=== PATIENT | female | born 1960 | race Caucasian/White ===

== ENCOUNTER 2017-01-16 19:12 | Emergency (ER) | payer MEDICAID ==
[~2017-01-16] VITALS: Ht 172.7 cm; Wt 112.0 kg
[~2017-01-16 19:12] MED LIST: ALBU6.7H INH; ASPI81TA11 PO; DILT120C7 PO; FLUO1TAB3 PO; FLUT1SPR20; FURO40TA PO; HYDR-3533 PO; IPRA1POW8; LATA0.002 EACH EYE; LEVO150T7 PO; LORA1TAB12 PO; MAGN500T2 PO; METF850T PO; MIRT30TA PO; MONT10TA4 PO; OMEP40CA2 PO; POTA10CA PO; SYMB80AE INH; TIMO0.5S30 EACH EYE
[2017-01-16 19:15] VITALS: BP 145/80; PULSE 74; RESP 15; TEMP 97.9; O2SAT 95
[2017-01-16 23:32] VITALS: BP 155/81; PULSE 65; RESP 22; O2SAT 91
[2017-01-17] MEDS ORDERED: SODIUM CHLORIDE 0.9% FLUSH 5 ML FLUSH IVF PRN
[2017-01-17 00:27] LABS: AUTOMATED NEUTROPHIL # 7.8 TH/MM3 (1.8-7.7); BASOPHIL # 0.1 TH/MM3 (0-0.2); BASOPHIL % 0.9 % (0.0-2.0); EOSINOPHIL # 0.1 TH/MM3 (0-0.4); EOSINOPHIL % 1.1 % (0.0-4.0); HEMATOCRIT 40.5 % (35.0-46.0); HEMO FLAGS DIFF FINAL; LYMPH % 10.9 % (9.0-44.0); MEAN CELL VOLUME 90.5 FL (80.0-100.0); MEAN CORPUSCULAR HEMOGLOBIN 31.3 PG (27.0-34.0); MEAN CORPUSCULAR HGB CONC 34.6 % (32.0-36.0); MONO % 5.3 % (0.0-8.0); NEUT % 81.8 % (16.0-70.0); PLATELET COUNT 275 TH/MM3 (150-450); RED BLOOD COUNT 4.47 MIL/MM3 (4.00-5.30); RED CELL DISTRIBUTION WIDTH 14.5 % (11.6-17.2); WHITE BLOOD COUNT 9.6 TH/MM3 (4.0-11.0)
[2017-01-17 00:48] LABS: ALT (GPT) 17 U/L (10-53); ANION GAP 4 MEQ/L (5-15); AST (GOT) 13 U/L (15-37); BICARBONATE 33.7 MEQ/L (21.0-32.0); BLOOD UREA NITROGEN 8 MG/DL (7-18); CHLORIDE 100 MEQ/L (98-107); GLOMERULAR FILTRATION RATE 87 ML/MIN (>89); MAGNESIUM 2.3 MG/DL (1.5-2.5); POTASSIUM 4.2 MEQ/L (3.5-5.1); SODIUM (NA) 138 MEQ/L (136-145)
[2017-01-17 00:51] LABS: ALKALINE PHOSPHATASE 94 U/L (45-117); CREATINE KINASE 47 U/L (26-192); TOTAL BILIRUBIN ADULT 0.3 MG/DL (0.2-1.0)
--- NOTE | 2017-01-17 01:02 | RADRPT ---
EXAM DATE/TIME: 01/17/2017 00:02 [facility] COMPARISON: CHEST SINGLE AP, March 31, 2016, 17:59. INDICATIONS : Chest pain. MEDICAL HISTORY : None. SURGICAL HISTORY : None. ENCOUNTER: Initial ACUITY: 2 days PAIN SCORE: 7/10 LOCATION: Bilateral chest FINDINGS: Single AP view of the chest. Mild cardiac silhouette enlargement unchanged. Mild atelectasis or scarr ing at the lung bases unchanged. Cardiomediastinal silhouette within normal limits. No evidence of pl eural effusion or pneumothorax. CONCLUSION: Mild by basilar atelectasis or scarring. No significant interval change. Noah Pitt MD on January 17, 2017 at 1:00 Board Certified Radiologist. This report was verified electronically.
[2017-01-17 01:36] LABS: APTT (PATIENT) 26.1 SEC (24.3-30.1); INTERNATIONAL NORMALIZED RATIO 0.9 RATIO; PROTHROMBIN TIME - PATIENT 10.2 SEC (9.8-11.6)
[2017-01-17] MEDS ORDERED: IOHEXOL 350 MG/ML 10 ML VIAL (for RAD DIAG) IV ONE (02:04)
--- NOTE | 2017-01-17 02:32 | RADRPT ---
EXAM DATE/TIME: 01/17/2017 01:46 [facility] COMPARISON: CT THORAX W/O CONTRAST, August 13, 2016, 14:16. CT PULMONARY ANGIOGRAM, March 04, 2015, 19:41. INDICATIONS : Chest pain with shortness of breath. IV CONTRAST: 75 cc Omnipaque 350 (iohexol) IV RADIATION DOSE: 23.38 CTDIvol (mGy) MEDICAL HISTORY : Cardiovascular disease. Hypertension. Diabetes mellitus type 2.COPD GERD Renal stones SURGICAL HISTORY : Cholecystectomy. Lithoptripsy ENCOUNTER: Initial ACUITY: 2 days PAIN SCALE: 7/10 LOCATION: Bilateral chest TECHNIQUE: Volumetric scanning of the chest was performed using a pulmonary embolism protocol MIP images were re constructed. Using automated exposure control and adjustment of the mA and/or kV according to patien t size, radiation dose was kept as low as reasonably achievable to obtain optimal diagnostic quality images. FINDINGS: PULMONARY ARTERIES: No filling defects are seen in the pulmonary arteries through the segmental level. LUNGS: Mosaic attenuation pattern of the lungs is again seen bilaterally and unchanged. Scarring is noted in the right middle lobe and lingula bilaterally. Reticular opacity and mild honeycombing is seen in th e right lower lobe posteriorly along with mild bilateral lower lobe bronchiectasis. 2.5 x 1 cm elonga kartik area of confluent opacity at the inferior aspect of the left lower lobe favors atelectasis or mil d consolidation. This is not seen on the prior study. PLEURAE: There is no pleural thickening or pleural effusion. MEDIASTINUM: Aorta normal liver. No enlarged lymph nodes. MUSCULOSKELETAL: Within normal limits for patient age. MISCELLANEOUS: The visualized upper abdominal organs demonstrate no acute abnormality. CONCLUSION: 1. No evidence of pulmonary embolus. 2. Evidence of chronic interstitial lung disease with mild honeycombing at the right lung base. Findi ngs upper breast when compared thousand 15. Lung findings are very similar to prior study of August 2016. There is a masslike opacity in the left lower lobe was shaped and favors atelectasis. Recommend 3 month followup noncontrast chest CT. Noah Pitt MD on January 17, 2017 at 2:24 Board Certified Radiologist. This report was verified electronically.
--- NOTE | 2017-01-17 02:32 | PD ---
HPI Chief Complaint: Respiratory Symptoms Time Seen by Provider: 23:48 Travel History International Travel<30 days: No Contact w/Intl Traveler<30days: No Traveled to known affect area: No History of Present Illness HPI The patient is 57 years old and arrives. She saw Dr. Nicholas of pulmonology today because she has been having left-sided chest pain for about 1 month. She took Levaquin and prednisone which did not help. She's had chills. She's had no fever. She reports an occasional cough. There is no exertional component to the chest pain. It's constant. There is no nausea or vomiting. She has no history of PE or DVT. She denies smoking. She was advised to go to [facility] to have a CT pulmonary angiogram to rule out PE performed. She was advised to come to the ED. PFSH Past Medical History Hx Anticoagulant Therapy: Yes (ASA) Arthritis: No Asthma: Yes Autoimmune Disease: No Anxiety: No Depression: No Heart Rhythm Problems: No Cancer: No Cardiovascular Problems: Yes (HTN) High Cholesterol: Yes Chest Pain: No Congestive Heart Failure: Yes COPD: Yes Cerebrovascular Accident: No Diabetes: Yes Patient Takes Glucophage: No Diminished Hearing: No Endocrine: Yes Gastrointestinal Disorders: Yes GERD: Yes Genitourinary: Yes Headaches: No Hepatitis: No Hiatal Hernia: No Hypertension: Yes (HTN ) Immune Disorder: No Kidney Stones: Yes (S/P LITHOTRIPSY ) Musculoskeletal: No Neurologic: No Psychiatric: Yes (BIPOLAR / SCHIZOPHRENIA/ ATTEMPTED SUICIDE 1 TIME IN PAST ) Reproductive: No Respiratory: Yes (COPD) Immunizations Current: Yes Migraines: No Myocardial Infarction: No Seizures: No Thyroid Disease: Yes (HYPOTHYROID ) Ulcer: Yes (ACID REFLEX) Influenza Vaccination: Yes PNEUMOCCOCAL Vaccine (Year): 2008 Menopausal: Yes Past Surgical History Abdominal Surgery: No Cardiac Surgery: No Cholecystectomy: Yes Ear Surgery: No Endocrine Surgery: No Genitourinary Surgery: Yes (LITHOTRIPSY ) Gynecologic Surgery: No Oral Surgery: Yes (REMOVAL OF TEETH/ DENTURES) Pacemaker: No Thoracic Surgery: Yes (RIGHT LUNG BIOPSY ) Other Surgery: Yes (GALL BLADDER, LITHOTRIPSY, GLAUCOMA SX, I&D RIGHT KNEE ) Social History Alcohol Use: Yes (RARELY) Tobacco Use: No (QUIT 1995) Substance Use: No Allergies-Medications (Allergen,Severity, Reaction): Coded Allergies: Latex (Verified Allergy, Severe, RASH, 01/16/17) Sulfa (Verified Allergy, Severe, UNKNOWN, 01/16/17) Reported Meds & Prescriptions Reported Meds & Active Scripts Active Magnesium Oxide 500 Mg Tab 500 Mg PO DAILY 30 Days Lortab (Hydrocodone-Acetaminophen) 5-325 Mg Tab 1-2 Tab PO Q6H PRN Potassium Chloride ER (Potassium Chloride) 10 Meq Cap 10 Meq PO DAILY Reported Proventil Hfa 6.7 GM Inh (Albuterol Sulfate) 90 Mcg/Act Aer 2 Puff INH Q4-6H PRN Ipratropium Essie 1 Pow Pow 0.02 % .ROUTE Timolol Opth Drops 0.5 % Soln 1 Drop EACH EYE BID Latanoprost Opth Drops (Latanoprost) 0.005% Drops 1 Drop EACH EYE HS Refrigerate until opened. Eq Allergy Relief (Fluticasone Propionate (Nasal)) 50 Mcg/Act Spr Furosemide 40 Mg Tab 40 Mg PO BID Omeprazole 40 Mg Cap 40 Mg PO DAILY Fluoxetine (Fluoxetine HCl) 20 Mg Tab 20 Mg PO DAILY Montelukast (Montelukast Sodium) 10 Mg Tab 10 Mg PO DAILY Levothyroxine (Levothyroxine Sodium) 150 Mcg Tab 150 Mcg PO DAILY Mirtazapine 30 Mg Tab 30 Mg PO HS Lorazepam 1 Mg Tab 1 Mg PO HS PRN Aspirin EC (Aspirin) 81 Mg Tabdr 81 Mg PO DAILY Diltiazem ER 24 HR (Diltiazem HCl) 120 Mg Caper 120 Mg PO DAILY Review of Systems Except as stated in HPI: all other systems reviewed are Neg Physical Exam Narrative GENERAL: 57 yo F, WNWD, no acute distress SKIN: Warm and dry. HEAD: Atraumatic. Normocephalic. EYES: Pupils equal and round. No scleral icterus. No injection or drainage. ENT: No nasal bleeding or discharge. Mucous membranes pink and moist. NECK: Trachea midline. No JVD. CARDIOVASCULAR: Regular rate and rhythm. RESPIRATORY: Occasional wheeze R lung. No tachypnea or dyspnea. GASTROINTESTINAL: Abdomen soft, non-tender, nondistended. Hepatic and splenic margins not palpable. MUSCULOSKELETAL: Extremities without clubbing, cyanosis, or edema. No obvious deformities. NEUROLOGICAL: Awake and alert. No obvious cranial nerve deficits. Motor grossly within normal limits. Five out of 5 muscle strength in the arms and legs. Normal speech. PSYCHIATRIC: Appropriate mood and affect; insight and judgment normal. Data Data Last Documented VS Vital Signs Date Time Temp Pulse Resp B/P Pulse Ox O2 Delivery O2 Flow Rate FiO2 01/17/17 00:15 94 Nasal Cannula 2 01/16/17 23:32 65 22 155/81 01/16/17 19:15 97.9 VS reviewed Orders Electrocardiogram (01/16/17 23:48) B-Type Natriuretic Peptide (01/16/17 23:48) Ckmb (Isoenzyme) Profile (01/16/17 23:48) Complete Blood Count With Diff (01/16/17 23:48) Comprehensive Metabolic Panel (01/16/17 23:48) Magnesium (Mg) (01/16/17 23:48) Prothrombin Time / Inr (Pt) (01/16/17 23:48) Act Partial Throm Time (Ptt) (01/16/17 23:48) Troponin I (01/16/17 23:48) Chest, Single Ap (01/16/17 23:48) Ecg Monitoring (01/16/17 23:48) Bilateral Bp Monitoring (01/16/17 23:48) Iv Access Insert/Monitor (01/16/17 23:48) Oximetry (01/16/17 23:48) Oxygen Administration (01/16/17 23:48) Sodium Chloride 0.9% Flush (Ns Flush) (01/17/17 00:00) Ct Pulmonary Angiogram (01/17/17 ) Iohexol 350 Inj (Omnipaque 350 Inj) (01/17/17 02:04) Labs Laboratory Tests Test 01/17/17 01/17/17 00:10 01:15 White Blood Count 9.6 TH/MM3 Red Blood Count 4.47 MIL/MM3 Hemoglobin 14.0 GM/DL Hematocrit 40.5 % Mean Corpuscular Volume 90.5 FL Mean Corpuscular Hemoglobin 31.3 PG Mean Corpuscular Hemoglobin 34.6 % Concent Red Cell Distribution Width 14.5 % Platelet Count 275 TH/MM3 Mean Platelet Volume 8.6 FL Neutrophils (%) (Auto) 81.8 % Lymphocytes (%) (Auto) 10.9 % Monocytes (%) (Auto) 5.3 % Eosinophils (%) (Auto) 1.1 % Basophils (%) (Auto) 0.9 % Neutrophils # (Auto) 7.8 TH/MM3 Lymphocytes # (Auto) 1.0 TH/MM3 Monocytes # (Auto) 0.5 TH/MM3 Eosinophils # (Auto) 0.1 TH/MM3 Basophils # (Auto) 0.1 TH/MM3 CBC Comment DIFF FINAL Differential Comment Sodium Level 138 MEQ/L Potassium Level 4.2 MEQ/L Chloride Level 100 MEQ/L Carbon Dioxide Level 33.7 MEQ/L Anion Gap 4 MEQ/L Blood Urea Nitrogen 8 MG/DL Creatinine 0.69 MG/DL Estimat Glomerular Filtration 87 ML/MIN Rate Random Glucose 117 MG/DL Calcium Level 9.2 MG/DL Magnesium Level 2.3 MG/DL Total Bilirubin 0.3 MG/DL Aspartate Amino Transf 13 U/L (AST/SGOT) Alanine Aminotransferase 17 U/L (ALT/SGPT) Alkaline Phosphatase 94 U/L Total Creatine Kinase 47 U/L Troponin I LESS THAN 0.02 NG/ML B-Type Natriuretic Peptide 44 PG/ML Total Protein 7.6 GM/DL Albumin 3.7 GM/DL Prothrombin Time 10.2 SEC Prothromb Time International 0.9 RATIO Ratio Activated Partial 26.1 SEC Thromboplast Time MDM Medical Decision Making Medical Screen Exam Complete: Yes Emergency Medical Condition: Yes Medical Record Reviewed: Yes Differential Diagnosis NSTEMI, unstable angina, coronary vasospasm, PE, PTX, aortic dissection, pericarditis, myocarditis, endocarditis, PNA, esophageal disease, aneurysm, musculoskeletal etiologies, anxiety, cocaine/sympathomimetic abuse Narrative Course CBC & BMP Diagram 01/17/17 00:10 Tn < 0.02 BNP 44 LFTs normal EKG: sinus, rate 65, normal axis/intervals Last 24 hours Impressions Chest X-Ray 01/16/17 0010 Signed Impressions: Service Date/Time: January 00:02 - CONCLUSION: Mild by basilar atelectasis or scarring. No significant interval change. Noah Pitt MD CTPA: Chronic intersitial lung disease with mild honeycombing at the right lung base. Masslike opactiy in LLL favors atelectasis. Recommend 3 month follow up noncontrast chest CT. Patient verbalized understanding of plan. Diagnosis Primary Impression: Chest pain Qualified Code: R07.9 - Chest pain, unspecified type Additional Impressions: Atelectasis Chronic interstitial lung disease Referrals: Belkis Wu MD 2 days Follow up noncontrast CT ches in 3 months Additional Instructions: You have a choice when it comes to health care, and we are glad that you chose [facility]. Hopefully, we have met your expectations on today's visit. You are welcome to return to [facility] at any time, as we are committed to meeting the health care needs of our community. Med/Other Pt SpecificInfo: No Change to Meds Disposition: 01 DISCHARGE HOME Condition: Gregg Esqueda MD Jan 17, 2017 02:32
--- NOTE | 2017-01-17 13:51 | EKG ---
Date Performed: 01/17/2017 Time Performed: 00:23:21 PTAGE: 57 years EKG: Sinus rhythm LOW QRS VOLTAGE IN PRECORDIAL LEADS POSSIBLE ANTERIOR MYOCARDIAL INFARCTION MODERATE T-WAVE ABNORMAL ITY, CONSIDER LATERAL ISCHEMIA ABNORMAL ECG PREVIOUS TRACING : 03/31/2016 18.07 DOCTOR: Jerrod Matias Interpretating Date/Time 01/17/2017 13:48:46
[2017-04-10] MEDS ORDERED: FLUT50SP EACH NARE (11:06)
== END 2017-01-17 02:55 | disposition home or self-care (01) ==
LOC: NEPE 19:12
DX: J98.11 Atelectasis (principal); J45.909 Unspecified asthma, uncomplicated; I10 Essential (primary) hypertension; E78.00 Pure hypercholesterolemia, unspecified; I50.9 Heart failure, unspecified; J44.9 Chronic obstructive pulmonary disease, unspecified; E11.9 Type 2 diabetes mellitus without complications; E03.9 Hypothyroidism, unspecified
CPT/HCPCS: 71010; 71275; 80053; 82550; 83735; 83880; 84484; 85025; 85610; 85730; 93005; 99285; Q9967

== ENCOUNTER 2017-04-13 17:50 | Inpatient (IN) | payer MEDICAID ==
[~2017-04-13] VITALS: Ht 172.7 cm; Wt 112.7 kg
[~2017-04-13 17:50] MED LIST changes: -FLUT1SPR20; +FLUT50SP EACH NARE; -IPRA1POW8; -METF850T PO; -SYMB80AE INH
[2017-04-13 17:54] VITALS: BP 163/73; PULSE 80; RESP 32; TEMP 97.1; O2SAT 85
[2017-04-13] MEDS ORDERED: methylPREDNISolone SOD SUCC 125 MG/2 ML VIAL IVP ONE (18:00)
--- NOTE | 2017-04-13 18:01 | PD ---
HPI Chief Complaint: Respiratory Distress Time Seen by Provider: 18:00 Travel History International Travel<30 days: No Contact w/Intl Traveler<30days: No Traveled to known affect area: No History of Present Illness HPI 57-year-old female with history of COPD presents to the ED for evaluation of 2 day history of shortness of breath. Patient is on 3 L O2 nasal cannula at home. She endorses chronic nonproductive cough. She denies fever or chills, chest pain, palpitations. Followed by Dr. Nicholas. [facility] Past Medical History Hx Anticoagulant Therapy: Yes (ASA) Arthritis: No Asthma: Yes Autoimmune Disease: No Anxiety: No Depression: No Heart Rhythm Problems: No Cancer: No Cardiovascular Problems: Yes (HTN) High Cholesterol: Yes Chest Pain: No Congestive Heart Failure: Yes COPD: Yes Cerebrovascular Accident: No Diabetes: Yes Diminished Hearing: No Endocrine: Yes Gastrointestinal Disorders: Yes GERD: Yes Genitourinary: Yes Headaches: No Hepatitis: No Hiatal Hernia: No Hypertension: Yes (HTN ) Immune Disorder: No Kidney Stones: Yes (S/P LITHOTRIPSY ) Musculoskeletal: No Neurologic: No Psychiatric: Yes (BIPOLAR / SCHIZOPHRENIA/ ATTEMPTED SUICIDE 1 TIME IN PAST ) Reproductive: No Respiratory: Yes (COPD) Immunizations Current: Yes Migraines: No Myocardial Infarction: No Seizures: No Thyroid Disease: Yes (HYPOTHYROID ) Ulcer: Yes (ACID REFLEX) PNEUMOCCOCAL Vaccine (Year): 2008 ?: Not Menopausal: Yes Past Surgical History Abdominal Surgery: No Cardiac Surgery: No Cholecystectomy: Yes Ear Surgery: No Endocrine Surgery: No Genitourinary Surgery: Yes (LITHOTRIPSY ) Gynecologic Surgery: No Oral Surgery: Yes (REMOVAL OF TEETH/ DENTURES) Pacemaker: No Thoracic Surgery: Yes (RIGHT LUNG BIOPSY ) Other Surgery: Yes (GALL BLADDER, LITHOTRIPSY, GLAUCOMA SX, I&D RIGHT KNEE ) Social History Alcohol Use: Yes (RARELY) Tobacco Use: No (QUIT 1995) Substance Use: No Allergies-Medications (Allergen,Severity, Reaction): Coded Allergies: Latex (Verified Allergy, Severe, RASH, 04/13/17) Sulfa (Verified Allergy, Severe, UNKNOWN, 04/13/17) Reported Meds & Prescriptions Reported Meds & Active Scripts Active Magnesium Oxide 500 Mg Tab 500 Mg PO DAILY 30 Days Potassium Chloride ER (Potassium Chloride) 10 Meq Cap 10 Meq PO DAILY Reported Proventil Hfa 6.7 GM Inh (Albuterol Sulfate) 90 Mcg/Act Aer 2 Puff INH Q4-6H PRN Timolol Opth Drops 0.5 % Soln 1 Drop EACH EYE BID Latanoprost Opth Drops (Latanoprost) 0.005% Drops 1 Drop EACH EYE HS Refrigerate until opened. Furosemide 40 Mg Tab 40 Mg PO BID Omeprazole 40 Mg Cap 40 Mg PO DAILY Fluoxetine (Fluoxetine HCl) 20 Mg Tab 20 Mg PO DAILY Montelukast (Montelukast Sodium) 10 Mg Tab 10 Mg PO DAILY Levothyroxine (Levothyroxine Sodium) 150 Mcg Tab 150 Mcg PO DAILY Mirtazapine 30 Mg Tab 60 Mg PO HS Lorazepam 1 Mg Tab 2 Mg PO Q12HR PRN Aspirin EC (Aspirin) 81 Mg Tabdr 81 Mg PO DAILY Diltiazem ER 24 HR (Diltiazem HCl) 120 Mg Caper 120 Mg PO DAILY Review of Systems Except as stated in HPI: all other systems reviewed are Neg Physical Exam Narrative GENERAL: Well-nourished, well-developed pale white female in NAD. On 3L NC. SKIN: Focused skin assessment warm/dry. Perioral cyanosis. HEAD: Normocephalic. EYES: No scleral icterus. No injection or drainage. NECK: Supple, trachea midline. No JVD or lymphadenopathy. CARDIOVASCULAR: Regular rate and rhythm without murmurs, gallops, or rubs. 2+ DP and radial pulses bilaterally. RESPIRATORY: Breath sounds diminished, wheezing throughout bilaterally. No accessory muscle use. GASTROINTESTINAL: Abdomen soft, non-tender, nondistended. No suprapubic TTP. Active bowel sounds MUSCULOSKELETAL: No cyanosis, or edema. Trace edema to the mid-cheema bilaterally. BACK: Nontender without obvious deformity. No CVA tenderness. Data Data Last Documented VS Vital Signs Date Time Temp Pulse Resp B/P Pulse Ox O2 Delivery O2 Flow Rate FiO2 04/13/17 19:14 67 21 142/60 93 Nasal Cannula 6 04/13/17 17:54 97.1 Orders Complete Blood Count With Diff (04/13/17 17:51) Comprehensive Metabolic Panel (04/13/17 17:51) Act Partial Throm Time (Ptt) (04/13/17 17:51) Prothrombin Time / Inr (Pt) (04/13/17 17:51) Ckmb (Isoenzyme) Profile (04/13/17 17:51) Troponin I (04/13/17 17:51) Urinalysis - C+S If Indicated (04/13/17 17:51) Iv Access Insert/Monitor (04/13/17 17:51) Electrocardiogram (04/13/17 17:51) Ecg Monitoring (04/13/17 17:51) Oximetry (04/13/17 17:51) Oxygen Administration (04/13/17 17:51) Methylprednisolone So Succ Inj (Solumedr (04/13/17 18:00) Albuterol-Ipratropium Neb (Duoneb Neb) (04/13/17 18:00) Blood Culture (04/13/17 17:57) Lactic Acid (04/13/17 17:57) Arterial Blood Gas (Abg) (04/13/17 ) D-Dimer (04/13/17 18:07) B-Type Natriuretic Peptide (04/13/17 18:33) Ct Pulmonary Angiogram (04/13/17 19:47) Urine Culture (04/13/17 19:52) Iohexol 350 Inj (Omnipaque 350 Inj) (04/13/17 22:03) Levofloxacin 750 Mg Premix Inj (Levaquin (04/13/17 23:00) Chest, Single Ap (04/13/17 ) Labs Laboratory Tests Test 04/13/17 04/13/17 04/13/17 04/13/17 17:58 18:04 18:15 19:52 White Blood Count 9.7 TH/MM3 Red Blood Count 4.71 MIL/MM3 Hemoglobin 14.2 GM/DL Hematocrit 43.6 % Mean Corpuscular Volume 92.7 FL Mean Corpuscular Hemoglobin 30.3 PG Mean Corpuscular Hemoglobin 32.6 % Concent Red Cell Distribution Width 13.5 % Platelet Count 315 TH/MM3 Mean Platelet Volume 8.7 FL Neutrophils (%) (Auto) 75.5 % Lymphocytes (%) (Auto) 13.9 % Monocytes (%) (Auto) 7.1 % Eosinophils (%) (Auto) 2.4 % Basophils (%) (Auto) 1.1 % Neutrophils # (Auto) 7.3 TH/MM3 Lymphocytes # (Auto) 1.3 TH/MM3 Monocytes # (Auto) 0.7 TH/MM3 Eosinophils # (Auto) 0.2 TH/MM3 Basophils # (Auto) 0.1 TH/MM3 CBC Comment DIFF FINAL Differential Comment Sodium Level 139 MEQ/L Potassium Level 3.6 MEQ/L Chloride Level 98 MEQ/L Carbon Dioxide Level 32.1 MEQ/L Anion Gap 9 MEQ/L Blood Urea Nitrogen 8 MG/DL Creatinine 0.59 MG/DL Estimat Glomerular Filtration 104 ML/MIN Rate Random Glucose 113 MG/DL Calcium Level 9.3 MG/DL Total Bilirubin 0.5 MG/DL Aspartate Amino Transf 14 U/L (AST/SGOT) Alanine Aminotransferase 17 U/L (ALT/SGPT) Alkaline Phosphatase 113 U/L Total Creatine Kinase 24 U/L Troponin I LESS THAN 0.02 NG/ML B-Type Natriuretic Peptide 46 PG/ML Total Protein 7.7 GM/DL Albumin 3.2 GM/DL Prothrombin Time 10.4 SEC Prothromb Time International 0.9 RATIO Ratio Activated Partial 26.6 SEC Thromboplast Time D-Dimer Quantitative (PE/DVT) 0.94 MG/L FEU Blood Gas Puncture Site LT RADIAL Blood Gas Patient Temperature 98.6 Blood Gas HCO3 35 mmol/L Blood Gas Base Excess 9.6 mmol/L Blood Gas Oxygen Saturation 97 % Arterial Blood pH 7.41 Arterial Blood Partial 56 mmHg Pressure CO2 Arterial Blood Partial 156 mmHG Pressure O2 Arterial Blood Oxygen Content 18.8 Vol % Arterial Blood 1.8 % Carboxyhemoglobin Arterial Blood Methemoglobin 0.7 % Blood Gas Hemoglobin 13.7 G/DL Oxygen Delivery Device NASAL CANNULA Blood Gas Liter Flow 2.5 L/M Urine Color YELLOW Urine Turbidity HAZY Urine pH 6.5 Urine Specific [place] 1.014 Urine Protein NEG mg/dL Urine Glucose (UA) NEG mg/dL Urine Ketones NEG mg/dL Urine Occult Blood NEG Urine Nitrite NEG Urine Bilirubin NEG Urine Urobilinogen LESS THAN 2.0 MG/DL Urine Leukocyte Esterase LARGE Urine RBC 3 /hpf Urine WBC 31 /hpf Urine Squamous Epithelial 9 /hpf Cells Urine Calcium Oxalate Crystals OCC /hpf Urine Bacteria OCC /hpf Urine Mucus FEW /lpf Microscopic Urinalysis Comment CULTURE INDICATED MDM Medical Decision Making Medical Screen Exam Complete: Yes Emergency Medical Condition: Yes Differential Diagnosis COPD exacerbation versus bronchitis versus pneumonia versus PE versus CHF versus other Narrative Course 57-year-old female with history of COPD presents to the ED for evaluation of 2 day history of shortness of breath. Patient is on 3 L O2 nasal cannula at home. She endorses chronic nonproductive cough. She denies fever or chills, chest pain, palpitations. Followed by Dr. Nicholas. Patient on 3L NC on presentation. There is perioral cyanosis, breathing sounds are tight with end expiratory wheezes throughout the lung christina. No accessory muscle use noted. Trace edema in the lower extremities. Physical exam otherwise unremarkable. Blood cultures drawn and pending. Patient was administered IV Solu-Medrol, DuoNeb 3. O2 increased to 4 L by nasal cannula. Afebrile, Respiratory rate 32, O2 sats 85% on 3L NC on presentation. CBC: WBC 9.7, hemoglobin 14.4. CMP: Unremarkable. UA: Hazy, large leukocyte esterase, 31 WBCs, occasional bacteria, occasional oxalate crystals. Culture pending. Coags: INR 0.9 D-dimer: 0.94 Cardiac enzyme: Negative 1 EKG rate 74, sinus rhythm. ID interval 186, QRS 81, QTC 420. Normal axis. No ST elevations or depressions. Reviewed by Dr. Acosta. CTA: No PE. Patchy new airspace disease in the right lower lobe since 01/03, characteristic about pneumonia. Chronic changes per radiology read. I discussed the results of the workup with the patient. I recommended admission to the hospital for treatment of RLL PNA. Patient states that she has a brother at home on hospice and would like to go home, however given the diagnosis of pneumonia she opts to be admitted to the hospital. IV Levaquin ordered. O2 sats currently 92-94% on 4 L nasal cannula. Call placed to [facility]. I spoke to Dr. Pang who agrees to accept the patient to the medicine service. Please see medicine notes for disposition. Nikki Bose Apr 13, 2017 18:01
[2017-04-13 18:02] VITALS: O2SAT 95
[2017-04-13] MEDS: RESP: ALBUTEROL 2.5 MG/IPRATROPIUM 0.5 MG NEB (SCH) INH ×2 (18:10→18:16)
[2017-04-13 18:12] LABS: AUTOMATED NEUTROPHIL # 7.3 TH/MM3 (1.8-7.7); BASOPHIL # 0.1 TH/MM3 (0-0.2); BASOPHIL % 1.1 % (0.0-2.0); EOSINOPHIL # 0.2 TH/MM3 (0-0.4); EOSINOPHIL % 2.4 % (0.0-4.0); HEMATOCRIT 43.6 % (35.0-46.0); HEMO FLAGS DIFF FINAL; LYMPH % 13.9 % (9.0-44.0); LYMPHOCYTE # 1.3 TH/MM3 (1.0-4.8); MEAN CELL VOLUME 92.7 FL (80.0-100.0); MEAN CORPUSCULAR HEMOGLOBIN 30.3 PG (27.0-34.0); MEAN CORPUSCULAR HGB CONC 32.6 % (32.0-36.0); MONO % 7.1 % (0.0-8.0); NEUT % 75.5 % (16.0-70.0); PLATELET COUNT 315 TH/MM3 (150-450); RED BLOOD COUNT 4.71 MIL/MM3 (4.00-5.30); RED CELL DISTRIBUTION WIDTH 13.5 % (11.6-17.2); WHITE BLOOD COUNT 9.7 TH/MM3 (4.0-11.0)
[2017-04-13 18:22] LABS: BLOOD GAS BASE EXCESS 9.6 mmol/L (-2-2); BLOOD GAS CARBOXYHEMOGLOBIN 1.8 % (0-4); BLOOD GAS HCO3 35 mmol/L (22-26); BLOOD GAS METHEMOGLOBIN 0.7 % (0-2); BLOOD GAS O2 HGB SATURATION 97 % (90-100); BLOOD GAS OXYGEN CONTENT 18.8 Vol % (12.0-20.0); BLOOD GAS PCO2 56 mmHg (38-42); BLOOD GAS PO2 156 mmHG (61-120); BLOOD GAS TOTAL HGB 13.7 G/DL (12.0-16.0); CRITICAL VALUE YES; DRAW SITE LT RADIAL; LITER FLOW 2.5 L/M; NUMBER OF ARTERIAL PUNCTURES 1; OXYGEN DEVICE NASAL CANNULA; STAT YES; TEMP CORR TO 98.6; ULNAR PULSE PRESENT
[2017-04-13 18:27] LABS: APTT (PATIENT) 26.6 SEC (24.3-30.1); INTERNATIONAL NORMALIZED RATIO 0.9 RATIO; PROTHROMBIN TIME - PATIENT 10.4 SEC (9.8-11.6)
[2017-04-13 18:37] LABS: ALT (GPT) 17 U/L (10-53); ANION GAP 9 MEQ/L (5-15); BICARBONATE 32.1 MEQ/L (21.0-32.0); BLOOD UREA NITROGEN 8 MG/DL (7-18); CHLORIDE 98 MEQ/L (98-107); GLOMERULAR FILTRATION RATE 104 ML/MIN (>89); POTASSIUM 3.6 MEQ/L (3.5-5.1); SODIUM (NA) 139 MEQ/L (136-145)
[2017-04-13 18:40] LABS: ALKALINE PHOSPHATASE 113 U/L (45-117); AST (GOT) 14 U/L (15-37); TOTAL BILIRUBIN ADULT 0.5 MG/DL (0.2-1.0)
[2017-04-13 18:51] LABS: CREATINE KINASE 24 U/L (26-192)
[2017-04-13 19:14] VITALS: BP 142/60; PULSE 67; RESP 21; O2SAT 93
[2017-04-13 20:09] LABS: BACTERIA, URINE OCC /hpf; BLOOD, URINE NEG (NEG); CALCIUM OXALATE CRYSTALS,URINE OCC /hpf; COMMENT (UR) CULTURE INDICATED; CULTURE IF INDICATED CULTURE INDICATED; GLUCOSE,URINE NEG (NEG); KETONE, URINE NEG (NEG); MUCUS URINE FEW /lpf (OCC); NITRITE,URINE NEG (NEG); PH, URINE 6.5 (5.0-8.5); SQUAMOUS EPITHELIAL CELL URINE 9 /hpf (0-5); URINE COLOR YELLOW (YELLW/STRAW)
[2017-04-13] MEDS ORDERED: IOHEXOL 350 MG/ML 10 ML VIAL (for RAD DIAG) IV ONE (22:03)
--- NOTE | 2017-04-13 22:31 | RADRPT ---
EXAM DATE/TIME: 04/13/2017 21:59 [facility] COMPARISON: No previous studies available for comparison. INDICATIONS : Shortness of breath. IV CONTRAST: 80 cc Omnipaque 350 (iohexol) IV RADIATION DOSE: 24.45 CTDIvol (mGy) MEDICAL HISTORY : Gastroesophageal reflux disease. Chronic obstructive pulmonary disease. Hypertension.Renal calculi. SURGICAL HISTORY : Cholecystectomy. ENCOUNTER: Initial ACUITY: 2 days PAIN SCALE: 0/10 LOCATION: Bilateral chest TECHNIQUE: Volumetric scanning of the chest was performed using a pulmonary embolism protocol MIP images were re constructed. Using automated exposure control and adjustment of the mA and/or kV according to patien t size, radiation dose was kept as low as reasonably achievable to obtain optimal diagnostic quality images. FINDINGS: No filling defects identified to suggest bone embolic disease. There is mild bilateral hilar and medi astinal adenopathy. No pleural effusion. Chronic fibrotic changes are present in lungs similar to alex or examination. There is a small amount of new airspace disease in the right lower lobe could represe nt a mild bronchopneumonia. There is some lobular air trapping. CONCLUSION: 1. Negative for pulmonary embolus. 2. Patchy new air space disease in the right lower lobe compared with January 03 is in the bronchopneumo george. 3. Chronic underlying nonspecific appearing pulmonary fibrosis with some air trapping ground glass op acity as well as some traction bronchiectasis at the lung bases. Keaton Ureña MD on April 13, 2017 at 22:18 Board Certified Radiologist. This report was verified electronically.
[2017-04-13 22:57] VITALS: BP 130/60; PULSE 73; RESP 17; O2SAT 93
[2017-04-13] MEDS ORDERED: MORPHINE SULFATE 4 MG/ML INJ IV PRN (23:00)
[2017-04-13] MEDS ORDERED: LORazepam 1 MG TAB PO PRN (23:00)
[2017-04-13] MEDS ORDERED: MAGNESIUM HYDROXIDE SUSP 30 ML CUP PO PRN (23:00)
[2017-04-13] MEDS ORDERED: ACETAMINOPHEN/HYDROcodone 325 MG/5 MG TAB PO PRN (23:00)
[2017-04-13] MEDS ORDERED: RESP: ALBUTEROL 2.5 MG/IPRATROPIUM 0.5 MG NEB (PRN) NEB (23:00)
[2017-04-13] MEDS ORDERED: SODIUM CHLORIDE 0.9% FLUSH 10 ML FLUSH IV FLUSH PRN (23:00)
[2017-04-13] MEDS ORDERED: ACETAMINOPHEN 325 MG TAB PO PRN (23:00)
[2017-04-13] MEDS ORDERED: ONDANSETRON HCL 4 MG/2 ML VIAL IVP PRN (23:00)
[2017-04-13] MEDS ORDERED: LACTULOSE SYRUP 20 GM/30 ML CUP PO PRN (23:00)
[2017-04-13] MEDS ORDERED: SENNOSIDES 8.6 MG TAB PO PRN (23:00)
[2017-04-13] MEDS ORDERED: BISACODYL 10 MG SUPP RECTAL PRN (23:00)
[2017-04-13] MEDS ORDERED: LEVOFLOXACIN 750 MG PREMIX INJ 150 ML IV ONE (23:00)
--- NOTE | 2017-04-13 23:12 | HHI.HP ---
HPI Service [facility] Primary Care Physician Callum Cassidy MD Admission Diagnosis right lower lobe pneumonia Diagnoses: (1) COPD (chronic obstructive pulmonary disease) Diagnosis: Principal (2) PNA (pneumonia) Diagnosis: Principal (3) Hypoxia Diagnosis: Principal (4) UTI (urinary tract infection) Diagnosis: Principal Travel History International Travel<30 Days: No Contact w/Intl Traveler <30 Da: No Traveled to Known Affected Are: No History of Present Illness Is a 57-year-old female with a PMH of COPD, O2 Dependent, HTN, Hyperlipidemia and Bipolar/Schizophrenia who is brought to the ER by EMS secondary to complaints of SOB x2 days. Normally on 3L NC at home w/ increased O2 requirements since yesterday. Denies fever or chills. Reports non-productive cough. On arrival, BP 163/73, HR 80, O2 sat 85% on RA, Afebrile. CBC unremarkable. Chemistry essentially unremarkable. Troponin negative. D-dimer 0.94. UA positive for UTI. CTA Pulm negative for PE, +patchy air space disease in RLL, bronchopneumonia, pulmonary fibrosis and air trapping w/ bronchiectasis at bases. S/p Solu-Medrol, DuoNeb and Levaquin in ER. Review of Systems Except as stated in HPI: all other systems reviewed are Neg ROS: 14 point review of systems otherwise negative. Past Family Social History Past Medical History PMH: COPD, O2 Dependent, HTN, Hyperlipidemia and Bipolar/Schizophrenia Past Surgical History PAST SURGICAL HISTORY: Lithotripsy, Dental Extraction, Lung Biopsy, Cholecystectomy Allergies: Coded Allergies: Latex (Verified Allergy, Severe, RASH, 04/13/17) Sulfa (Verified Allergy, Severe, UNKNOWN, 04/13/17) Family History PAST FAMILY HISTORY: Reviewed. No h/o DM or CAD Social History PAST SOCIAL HISTORY: Occasional alcohol. Negative for tobacco or drugs. Physical Exam Vital Signs Vital Signs Date Time Temp Pulse Resp B/P Pulse Ox O2 Delivery O2 Flow Rate FiO2 04/13/17 22:57 73 17 130/60 93 Nasal Cannula 4 04/13/17 19:14 67 21 142/60 93 Nasal Cannula 6 04/13/17 18:11 Nasal Cannula 2 04/13/17 18:02 95 Nasal Cannula 4 04/13/17 18:02 95 Nasal Cannula 4 04/13/17 17:54 97.1 80 32 163/73 85 Physical Exam PE: GENERAL: Middle-aged female in no acute distress. HEENT: PERRLA, EOMI. No scleral icterus or conjunctival pallor. No lid lag or facial droop. CARDIOVASCULAR: Regular rate and rhythm. No obvious murmurs to auscultation. No chest tenderness to palpation. RESPIRATORY: No obvious rhonchi. Occasional wheezing. Clear to auscultation. Breath sounds equal bilaterally. GASTROINTESTINAL: Abdomen soft, non-tender, nondistended. BS normal. MUSCULOSKELETAL: Extremities without clubbing, cyanosis, or edema. No obvious deformities. NEUROLOGICAL: Awake, alert and oriented x4. No focal neurologic deficits. Moving both upper and lower extremities spontaneously. Laboratory Laboratory Tests Test 04/13/17 04/13/17 04/13/17 04/13/17 17:58 18:04 18:15 19:52 White Blood Count 9.7 Red Blood Count 4.71 Hemoglobin 14.2 Hematocrit 43.6 Mean Corpuscular Volume 92.7 Mean Corpuscular Hemoglobin 30.3 Mean Corpuscular Hemoglobin 32.6 Concent Red Cell Distribution Width 13.5 Platelet Count 315 Mean Platelet Volume 8.7 Neutrophils (%) (Auto) 75.5 Lymphocytes (%) (Auto) 13.9 Monocytes (%) (Auto) 7.1 Eosinophils (%) (Auto) 2.4 Basophils (%) (Auto) 1.1 Neutrophils # (Auto) 7.3 Lymphocytes # (Auto) 1.3 Monocytes # (Auto) 0.7 Eosinophils # (Auto) 0.2 Basophils # (Auto) 0.1 CBC Comment DIFF FINAL Differential Comment Sodium Level 139 Potassium Level 3.6 Chloride Level 98 Carbon Dioxide Level 32.1 Anion Gap 9 Blood Urea Nitrogen 8 Creatinine 0.59 Estimat Glomerular Filtration 104 Rate Random Glucose 113 Calcium Level 9.3 Total Bilirubin 0.5 Aspartate Amino Transf 14 (AST/SGOT) Alanine Aminotransferase 17 (ALT/SGPT) Alkaline Phosphatase 113 Total Creatine Kinase 24 Troponin I LESS THAN 0.02 B-Type Natriuretic Peptide 46 Total Protein 7.7 Albumin 3.2 Prothrombin Time 10.4 Prothromb Time International 0.9 Ratio Activated Partial 26.6 Thromboplast Time D-Dimer Quantitative (PE/DVT) 0.94 Blood Gas Puncture Site LT RADIAL Blood Gas Patient Temperature 98.6 Blood Gas HCO3 35 Blood Gas Base Excess 9.6 Blood Gas Oxygen Saturation 97 Arterial Blood pH 7.41 Arterial Blood Partial 56 Pressure CO2 Arterial Blood Partial 156 Pressure O2 Arterial Blood Oxygen Content 18.8 Arterial Blood 1.8 Carboxyhemoglobin Arterial Blood Methemoglobin 0.7 Blood Gas Hemoglobin 13.7 Oxygen Delivery Device NASAL CANNULA Blood Gas Liter Flow 2.5 Urine Color YELLOW Urine Turbidity HAZY Urine pH 6.5 Urine Specific [place] 1.014 Urine Protein NEG Urine Glucose (UA) NEG Urine Ketones NEG Urine Occult Blood NEG Urine Nitrite NEG Urine Bilirubin NEG Urine Urobilinogen LESS THAN 2.0 Urine Leukocyte Esterase LARGE Urine RBC 3 Urine WBC 31 Urine Squamous Epithelial 9 Cells Urine Calcium Oxalate Crystals OCC Urine Bacteria OCC Urine Mucus FEW Microscopic Urinalysis Comment CULTURE INDICATED Date/Time Procedure Status Source Growth 04/13/17 19:52 Urine Culture Received Urine Random Urine Pending 04/13/17 19:05 Aerobic Blood Culture Received Blood Line Pending 04/13/17 19:05 Anaerobic Blood Culture Received Blood Line Pending Result Diagram: 04/13/17175704/13/171757 Assessment and Plan Problem List: (1) COPD (chronic obstructive pulmonary disease) ICD Code: J44.9 Status: Acute (2) PNA (pneumonia) ICD Code: J18.9 Status: Acute (3) UTI (urinary tract infection) ICD Code: N39.0 Status: Acute (4) Hypoxia ICD Code: R09.02 Status: Acute Assessment and Plan A/P: 1. COPD: Chronic Respiratory Failure with Acute Exacerbation. O2 Dependent on 3L NC. +wheezing on exam, s/p Solu-Medrol and DuoNeb in ER, will continue w / Solu-Medrol, DuoNeb, Symbicort, Mucinex. Monitor O2. CTA w/ pulmonary fibrosis, air trapping and bronchiectasis, images reviewed by me. 2. PNA: CTA Pulm negative for PE, +bronchopneumonia RLL, images reviewed by me. +non-productive cough. S/p Levaquin in ER, will continue w/ IV Abx. 3. Hypoxia: O2 sat 85% upon arrival, currently 94% on 4L NC. Multifactorial- secondary to COPD and PNA. 4. UTI: U/a w/ UTI. Continue w/ IV Levaquin for coverage of PNA and UTI. 5. DVT Prophylaxis: SCD/Teds. 6. Social work for d/c planning as needed. 7. Case discussed w/ ER physician at length Physician Certification 2 Midnight Certification Type: Admission for Inpatient Services Order for Inpatient Services The services are ordered in accordance with Medicare regulations or non- Medicare payer requirements, as applicable. In the case of services not specified as inpatient-only, they are appropriately provided as inpatient services in accordance with the 2-midnight benchmark. Estimated LOS (days): 2 days is the estimated time the patient will need to remain in the hospital, assuming treatment plan goals are met and no additional complications. Post-Hospital Plan: Not yet determined Luz Marina Pang MD Apr 13, 2017 23:12
--- NOTE | 2017-04-13 23:55 | RADRPT ---
EXAM DATE/TIME: 04/13/2017 23:13 [facility] COMPARISON: CHEST SINGLE AP, January 17, 2017, 0:02. INDICATIONS : Shortness of breath. MEDICAL HISTORY : Chronic obstructive pulmonary disease. Hypertension SURGICAL HISTORY : None. ENCOUNTER: Initial ACUITY: 1 day PAIN SCORE: 0/10 LOCATION: Bilateral chest FINDINGS: A single view of the chest demonstrates the lungs to be symmetrically aerated without evidence of mas s, consolidative infiltrate or effusion. There is mild streaky opacity in the perihilar regions and l renetta bases. The cardiomediastinal contours are unremarkable. Osseous structures are intact. CONCLUSION: Mild streaky opacity in the perihilar regions and lung bases which may represent scar ring. There is no new consolidation. Montana Yee MD on April 13, 2017 at 23:53 Board Certified Radiologist. This report was verified electronically.
[2017-04-14] VITALS (9 sets, daily range): BP systolic 106–151; BP diastolic 56–77; PULSE 70–83; RESP 20–28; TEMP 96.2–98.9; O2SAT 91–95
[2017-04-14] MEDS: methylPREDNISolone SOD SUCC 40 MG/1 ML VIAL IV PUSH SCH ×4 (00:31→23:50)
[2017-04-14 05:31] LABS: AUTOMATED NEUTROPHIL # 6.1 TH/MM3 (1.8-7.7); BASOPHIL % 0.3 % (0.0-2.0); HEMATOCRIT 42.4 % (35.0-46.0); HEMO FLAGS DIFF FINAL; LYMPH % 5.7 % (9.0-44.0); LYMPHOCYTE # 0.4 TH/MM3 (1.0-4.8); MEAN CELL VOLUME 92.3 FL (80.0-100.0); MEAN CORPUSCULAR HEMOGLOBIN 30.2 PG (27.0-34.0); MEAN CORPUSCULAR HGB CONC 32.7 % (32.0-36.0); MONO % 0.4 % (0.0-8.0); NEUT % 93.6 % (16.0-70.0); PLATELET COUNT 315 TH/MM3 (150-450); RED BLOOD COUNT 4.59 MIL/MM3 (4.00-5.30); RED CELL DISTRIBUTION WIDTH 13.4 % (11.6-17.2); WHITE BLOOD COUNT 6.6 TH/MM3 (4.0-11.0)
[2017-04-14 05:40] LABS: ALT (GPT) 18 U/L (10-53); ANION GAP 9 MEQ/L (5-15); AST (GOT) 12 U/L (15-37); BICARBONATE 32.5 MEQ/L (21.0-32.0); BLOOD UREA NITROGEN 9 MG/DL (7-18); CHLORIDE 97 MEQ/L (98-107); GLOMERULAR FILTRATION RATE 87 ML/MIN (>89); POTASSIUM 3.7 MEQ/L (3.5-5.1); SODIUM (NA) 138 MEQ/L (136-145)
[2017-04-14 05:42] LABS: ALKALINE PHOSPHATASE 113 U/L (45-117); TOTAL BILIRUBIN ADULT 0.3 MG/DL (0.2-1.0)
[2017-04-14] MEDS: LEVOTHYROXINE SODIUM 150 MCG TAB PO SCH (06:28)
[2017-04-14] MEDS: RESP: ALBUTEROL 2.5 MG/IPRATROPIUM 0.5 MG NEB (SCH) NEB ×3 (07:37→20:01)
[2017-04-14] MEDS: SODIUM CHLORIDE 0.9% FLUSH 10 ML FLUSH IV FLUSH SCH ×2 (08:05→20:18)
[2017-04-14] MEDS: TIMOLOL MALEATE 0.5% OPHT SOLN 5 ML BTL EACH EYE SCH ×2 (08:05→20:15)
[2017-04-14] MEDS: BUDESONIDE-FORMOTEROL 160/4.5 MCG INHALER INH SCH ×2 (08:05→20:15)
[2017-04-14] MEDS: FLUoxetine HCL 20 MG CAP PO SCH (08:05)
[2017-04-14] MEDS: MONTELUKAST SODIUM 10 MG TAB PO SCH (08:06)
[2017-04-14] MEDS: ASPIRIN EC 81 MG TABEC PO SCH (08:06)
[2017-04-14] MEDS: DOCUSATE SODIUM 50 MG/SENNA 8.6 MG TAB PO SCH ×2 (08:06→20:18)
[2017-04-14] MEDS: guaiFENesin E.R. 600 MG TAB PO SCH ×2 (08:06→20:17)
[2017-04-14] MEDS: DILTIAZEM-CD 120 MG CAP ER PO SCH (08:06)
[2017-04-14] MEDS: PANTOPRAZOLE SOD 40 MG DELAYED RELEASE TAB PO SCH (08:06)
[2017-04-14] MEDS: FUROSEMIDE 40 MG TAB PO SCH ×2 (08:06→20:17)
[2017-04-14] MEDS: MAGNESIUM OXIDE 400 MG TAB PO SCH (08:06)
--- NOTE | 2017-04-14 09:39 | EKG ---
Date Performed: 04/13/2017 Time Performed: 18:07:30 PTAGE: 57 years EKG: Sinus rhythm LOW QRS VOLTAGE IN PRECORDIAL LEADS POSSIBLE ANTERIOR MYOCARDIAL INFARCTION BORDERLINE ECG PREVIOUS TRACING : 01/17/2017 00.23 DOCTOR: Tray Ge Interpretating Date/Time 04/14/2017 09:33:14
--- NOTE | 2017-04-14 12:23 | HHI.PR ---
Subjective Remarks Patient states sob much improved denies fevers/chills stable vital signs no diarrhea no rash Objective Vitals Vital Signs Date Time Temp Pulse Resp B/P Pulse Ox O2 Delivery O2 Flow Rate FiO2 04/14/17 08:00 72 04/14/17 08:00 97.6 72 20 118/77 92 04/14/17 07:37 91 Nasal Cannula 4.00 04/14/17 01:40 70 04/14/17 01:08 96.2 74 22 151/75 92 04/14/17 00:00 92 Nasal Cannula 4.00 04/13/17 22:57 73 17 130/60 93 Nasal Cannula 4 04/13/17 19:14 67 21 142/60 93 Nasal Cannula 6 04/13/17 18:11 Nasal Cannula 2 04/13/17 18:02 95 Nasal Cannula 4 04/13/17 18:02 95 Nasal Cannula 4 04/13/17 17:54 97.1 80 32 163/73 85 I/O 04/13/17 04/13/17 04/13/17 04/14/17 04/14/17 04/14/17 07:00 15:00 23:00 07:00 15:00 23:00 Intake Total 240 ml Balance 240 ml Intake Oral 240 ml # Voids 2 # Bowel Movements 0 Result Diagram: 04/14/175 04/14/17 [address] Angiography 04/13/17 194 Signed Impressions: Service Date/Time: Thursday, April 13, 2017 21:59 - CONCLUSION: 1. Negative for pulmonary embolus. 2. Patchy new air space disease in the right lower lobe compared with January 03 is in the bronchopneumonia. 3. Chronic underlying nonspecific appearing pulmonary fibrosis with some air trapping ground glass opacity as well as some traction bronchiectasis at the lung bases. Keaton Ureña MD Chest X-Ray 04/13/17 0000 Signed Impressions: Service Date/Time: Thursday, April 13, 2017 23:13 - CONCLUSION: Mild streaky opacity in the perihilar regions and lung bases which may represent scarring. There is no new consolidation. Montana Yee MD Objective Remarks GENERAL: Middle-aged female in no acute distress. HEENT: PERRLA, EOMI. No scleral icterus or conjunctival pallor. No lid lag or facial droop. CARDIOVASCULAR: Regular rate and rhythm. No obvious murmurs to auscultation. No chest tenderness to palpation. RESPIRATORY: No obvious rhonchi. Occasional wheezing. Clear to auscultation. Breath sounds equal bilaterally. GASTROINTESTINAL: Abdomen soft, non-tender, nondistended. BS normal. MUSCULOSKELETAL: Extremities without clubbing, cyanosis, or edema. No obvious deformities. NEUROLOGICAL: Awake, alert and oriented x4. No focal neurologic deficits. Moving both upper and lower extremities spontaneously. Urinary Catheter: No Vascular Central Line Catheter: No A/P Problem List: (1) COPD (chronic obstructive pulmonary disease) ICD Code: J44.9 Status: Acute (2) PNA (pneumonia) ICD Code: J18.9 Status: Acute (3) UTI (urinary tract infection) ICD Code: N39.0 Status: Acute (4) Hypoxia ICD Code: R09.02 Status: Acute Assessment and Plan 1. COPD Exacerbation: Chronic Respiratory Failure with Acute Exacerbation. O2 Dependent on 3L NC. +wheezing on exam, s/p Solu-Medrol and DuoNeb in ER, will continue w/ Solu-Medrol, DuoNeb, Symbicort, Mucinex. Monitor O2. CTA w/ pulmonary fibrosis, air trapping and bronchiectasis, images reviewed by me. 04/14 Improving COPD. Will taper Solumedrol dose to 40 mg Q 8 hrs. Continue same management as above. 2. PNA: CTA Pulm negative for PE, +bronchopneumonia RLL, images reviewed by me. +non-productive cough. S/p Levaquin in ER, will continue w/ IV Abx. 3. Hypoxia: O2 sat 85% upon arrival, currently 94% on 4L NC. Multifactorial- secondary to COPD and PNA. 4. UTI: U/a w/ UTI. Continue w/ IV Levaquin for coverage of PNA and UTI. 04/14 negative urine culture. 5. DVT Prophylaxis: SCD/Teds. 6. Social work for d/c planning as needed. Demond Smith MD Apr 14, 2017 12:23
--- NOTE | 2017-04-14 18:24 | MB ---
cc: Bladimir SOLORZANO DATE OF CONSULTATION: 04/14/2017. REASON FOR CONSULTATION: HISTORY OF PRESENT ILLNESS: Ms. Kuhn is a 57-year-old white female with a longstanding history of chronic lung disease followed as an outpatient by Dr. Wu. She was admitted here in August and was seen by Dr. Rosa. She was a former smoker, has known chronic obstructive and restrictive lung disease with an element of pulmonary fibrosis. She presented because she said her O2 saturations were running low in the 70s and 80s at home and she became concerned. She had had minimal cough. No purulent sputum or hemoptysis. She was not aware of fever. She said she has also been distraught because she has a brother who has been on hospice and dying of some type of cancer. No chest pain. No hemoptysis. She is on oxygen continuously at home and has had Levaquin and prednisone several times over the last few months but has not completely recovered. She is also on albuterol at home and Montelukast. She says there is a prior history of congestive heart failure; I do not know how well documented that is. Currently no evidence of congestive heart failure. BNP was 46 on presentation. She had CTA in the emergency room which was negative for pulmonary embolism, some patchy new air space disease in the right lower lobe when compared to previous scans done here in August. She does have chronic underlying changes consistent with fibrosis. PAST MEDICAL HISTORY: 1. Hypothyroidism. 2. She has had surgery on her right knee in the past. 3. Cholecystectomy. 4. Surgery on the left wrist last August after a fall. 5. No diabetes. 6. She has had bipolar disorder. 7. Schizophrenia. MEDICATIONS: Current medications reviewed in the EMR. ALLERGIES: 1. SULFA. 2. LATEX. SOCIAL HISTORY: Prior smoker, has not smoked in the last 20 years. Rarely drinks alcohol. No unusual animal exposures or toxic inhalation exposures. PHYSICAL EXAMINATION: GENERAL: She is lying in bed no distress. VITAL SIGNS: O2 sats on 4 liters 93% afebrile at 97, pulse is 80 regular, respirations 18-22 and blood pressure is 118/77. HEAD, EYES, EARS, NOSE, THROAT: Sclerae anicteric. NECK: Neck veins are flat. LYMPHATIC: No adenopathy in the neck, supraclavicular region. CHEST: The chest is actually quite clear and no significant basilar rales. No congestion or wheezing. HEART: No harsh murmur. Regular rhythm. No audible S3. EXTREMITIES: No pitting edema or calf tenderness. Ms. Kuhn presents with a history that her O2 sats have been running low at home with very few other symptoms that she is complaining of. She does have chronic underlying lung disease. It is most likely that this is mild exacerbation of COPD and some fibrosis. I think we should continue the antibiotic, try to collect a sputum, continue routine nebulized aerosol treatments along with a short course of IV Solu-Medrol and then monitor her O2 saturations. Once they are stable, she could continue outpatient follow up with Dr. Wu for pulmonary issues. Further diagnostic and/or therapeutic intervention will depend on her ongoing clinical course. R. MD HAYLEY Vang/IVANNA /3:46 PM /6:19 PM
[2017-04-14] MEDS: LATANOPROST 0.005% OPHT SOLN 2.5 ML BTL EACH EYE SCH (20:15)
[2017-04-14] MEDS: MIRTAZAPINE 15 MG TAB PO SCH (20:18)
[2017-04-14] MEDS: LEVOFLOXACIN 750 MG PREMIX INJ 150 ML IV SCH (23:50)
[2017-04-15] VITALS (7 sets, daily range): BP systolic 122–151; BP diastolic 58–74; PULSE 64–80; RESP 17–20; TEMP 96.5–97.6; O2SAT 94–97
[2017-04-15] MEDS: LEVOTHYROXINE SODIUM 150 MCG TAB PO SCH (06:24)
[2017-04-15] MEDS: methylPREDNISolone SOD SUCC 40 MG/1 ML VIAL IV PUSH SCH (06:24)
[2017-04-15] MEDS: RESP: ALBUTEROL 2.5 MG/IPRATROPIUM 0.5 MG NEB (SCH) NEB ×3 (08:23→19:22)
[2017-04-15] MEDS: ASPIRIN EC 81 MG TABEC PO SCH (10:16)
[2017-04-15] MEDS: guaiFENesin E.R. 600 MG TAB PO SCH ×2 (10:16→20:37)
[2017-04-15] MEDS: PANTOPRAZOLE SOD 40 MG DELAYED RELEASE TAB PO SCH (10:16)
[2017-04-15] MEDS: MONTELUKAST SODIUM 10 MG TAB PO SCH (10:16)
[2017-04-15] MEDS: FUROSEMIDE 40 MG TAB PO SCH ×2 (10:17→20:38)
[2017-04-15] MEDS: FLUoxetine HCL 20 MG CAP PO SCH (10:17)
[2017-04-15] MEDS: MAGNESIUM OXIDE 400 MG TAB PO SCH (10:17)
[2017-04-15] MEDS: DOCUSATE SODIUM 50 MG/SENNA 8.6 MG TAB PO SCH ×2 (10:17→20:38)
[2017-04-15] MEDS: DILTIAZEM-CD 120 MG CAP ER PO SCH (10:17)
[2017-04-15] MEDS: SODIUM CHLORIDE 0.9% FLUSH 10 ML FLUSH IV FLUSH SCH ×2 (10:18→20:39)
[2017-04-15] MEDS: BUDESONIDE-FORMOTEROL 160/4.5 MCG INHALER INH SCH ×2 (10:18→20:38)
[2017-04-15] MEDS: TIMOLOL MALEATE 0.5% OPHT SOLN 5 ML BTL EACH EYE SCH ×2 (10:18→20:38)
--- NOTE | 2017-04-15 20:22 | HHI.PR ---
Subjective Remarks Patient seen earlier at 4:30 PM sob much improved denies cp denies fevers/chills sugars are very elevated Objective Vitals Vital Signs Date Time Temp Pulse Resp B/P Pulse Ox O2 Delivery O2 Flow Rate FiO2 04/15/17 19:23 94 Nasal Cannula 4.00 04/15/17 16:00 96.9 78 17 125/58 95 04/15/17 12:00 96.9 80 17 151/72 94 04/15/17 07:55 97.6 67 20 122/60 97 04/15/17 04:00 96.5 64 20 132/74 94 04/15/17 00:00 96.9 73 20 130/61 94 I/O 04/14/17 04/14/17 04/14/17 04/15/17 04/15/17 04/15/17 07:00 15:00 23:00 07:00 15:00 23:00 Intake Total 240 ml 960 ml 480 ml 390 ml 1560 ml Output Total 400 ml Balance 240 ml 960 ml 480 ml 390 ml 1160 ml Intake Oral 240 ml 960 ml 480 ml 240 ml 1560 ml IV Total 0 ml 150 ml 0 ml Output Urine Total 400 ml # Voids 2 2 2 3 # Bowel Movements 0 1 0 0 0 Result Diagram: 04/14/175 04/14/17 [address] Angiography 04/13/17 194 Signed Impressions: Service Date/Time: Thursday, April 13, 2017 21:59 - CONCLUSION: 1. Negative for pulmonary embolus. 2. Patchy new air space disease in the right lower lobe compared with January 03 is in the bronchopneumonia. 3. Chronic underlying nonspecific appearing pulmonary fibrosis with some air trapping ground glass opacity as well as some traction bronchiectasis at the lung bases. Keaton Ureña MD Chest X-Ray 04/13/17 0000 Signed Impressions: Service Date/Time: Thursday, April 13, 2017 23:13 - CONCLUSION: Mild streaky opacity in the perihilar regions and lung bases which may represent scarring. There is no new consolidation. Montana Yee MD Objective Remarks GENERAL: Middle-aged female in no acute distress. HEENT: PERRLA, EOMI. No scleral icterus or conjunctival pallor. No lid lag or facial droop. CARDIOVASCULAR: Regular rate and rhythm. No obvious murmurs to auscultation. No chest tenderness to palpation. RESPIRATORY: No obvious rhonchi. Decreased breath sounds bilaterally however better air movement. GASTROINTESTINAL: Abdomen soft, non-tender, nondistended. BS normal. MUSCULOSKELETAL: Extremities without clubbing, cyanosis, or edema. No obvious deformities. NEUROLOGICAL: Awake, alert and oriented x4. No focal neurologic deficits. Moving both upper and lower extremities spontaneously. Procedures None Medications and IVs Current Medications Medications (Trade) Dose Ordered Sig/Miki Route Start Time Stop Time Status Last Admin (Symbicort 160-4.5 Inh) 2 puff Q12HR INH 04/14/17 09:00 04/15/17 10:18 Guaifenesin 600 mg 600 mg BID PO 04/14/17 09:00 04/15/17 10:16 (Levaquin 750 Mg Premix Inj) 150 ml @ 100 mls/hr Q24H IV 04/14/17 23:00 04/14/17 23:50 (NS Flush) 2 ml UNSCH PRN IV FLUSH 04/13/17 23:00 04/14/17 11:59 (NS Flush) 2 ml BID IV FLUSH 04/14/17 09:00 04/15/17 10:18 (Zofran Inj) 4 mg Q6H PRN IVP 04/13/17 23:00 (Tylenol) 650 mg Q6H PRN PO 04/13/17 23:00 ([place] 5-325 Mg) 1 tab Q4H PRN PO 04/13/17 23:00 (Morphine Inj) 2 mg Q3H PRN IV 04/13/17 23:00 (Gina-Colace) 1 tab BID PO 04/14/17 09:00 04/15/17 10:17 (Milk Of Magnesia Liq) 30 ml Q12H PRN PO 04/13/17 23:00 (Senokot) 17.2 mg Q12H PRN PO 04/13/17 23:00 (Dulcolax Supp) 10 mg DAILY PRN RECTAL 04/13/17 23:00 (Lactulose Liq) 30 ml DAILY PRN PO 04/13/17 23:00 (Ecotrin Ec) 81 mg DAILY PO 04/14/17 09:00 04/15/17 10:16 (PROzac) 20 mg DAILY PO 04/14/17 09:00 04/15/17 10:17 (Lasix) 40 mg BID PO 04/14/17 09:00 04/15/17 10:17 (Xalatan 0.005% Opth Soln) 1 drop HS EACH EYE 04/14/17 21:00 04/14/17 20:15 (Synthroid) 150 mcg DAILY@06 PO 04/14/17 06:00 04/15/17 06:24 (Ativan) 2 mg Q12HR PRN PO 04/13/17 23:00 (Remeron) 60 mg HS PO 04/14/17 21:00 04/14/17 20:18 (Singulair) 10 mg DAILY PO 04/14/17 09:00 04/15/17 10:16 (Timoptic 0.5% Opth Soln) 1 drop BID EACH EYE 04/14/17 09:00 04/15/17 10:18 (Cardizem Cd) 120 mg DAILY PO 04/14/17 09:00 04/15/17 10:17 (Mag-Ox) 400 mg DAILY PO 04/14/17 09:00 04/15/17 10:17 (Protonix) 40 mg DAILY PO 04/14/17 09:00 04/15/17 10:16 (Deltasone) 20 mg BID PO 04/15/17 21:00 Urinary Catheter: No Vascular Central Line Catheter: No A/P Problem List: (1) COPD (chronic obstructive pulmonary disease) ICD Code: J44.9 Status: Acute (2) PNA (pneumonia) ICD Code: J18.9 Status: Acute (3) UTI (urinary tract infection) ICD Code: N39.0 Status: Acute (4) Hypoxia ICD Code: R09.02 Status: Acute Assessment and Plan 1. COPD Exacerbation: Chronic Respiratory Failure with Acute Exacerbation. O2 Dependent on 3L NC. +wheezing on exam, s/p Solu-Medrol and DuoNeb in ER, will continue w/ Solu-Medrol, DuoNeb, Symbicort, Mucinex. Monitor O2. CTA w/ pulmonary fibrosis, air trapping and bronchiectasis, images reviewed by me. 04/14 Improving COPD. Will taper Solumedrol dose to 40 mg Q 8 hrs. Continue same management as above. 04/15 pul[address] consulted. Apprec[address]. Hu's recommendations. Solu- Medrol discontinued and the patient started on prednisone 20 mg by mouth twice a day. Continue Symbicort, progressive dilators and IV Levaquin. 2. PNA: CTA Pulm negative for PE, +bronchopneumonia RLL, images reviewed by me. +non-productive cough. S/p Levaquin in ER, will continue w/ IV Abx. 04/15 blood cultures negative 2. 3. Hypoxia: O2 sat 85% upon arrival, currently 94% on 4L NC. Multifactorial- secondary to COPD and PNA. 4. UTI: U/a w/ UTI. Continue w/ IV Levaquin for coverage of PNA and UTI. 04/14 negative urine culture. 5. DVT Prophylaxis: SCD/Teds. 6. Social work for d/c planning as needed. Discharge Planning Possible DC in 1-2 days pending clinical improvement. Demond Smith MD Apr 15, 2017 20:22
[2017-04-15] MEDS: predniSONE 20 MG TAB PO SCH (20:37)
[2017-04-15] MEDS: LATANOPROST 0.005% OPHT SOLN 2.5 ML BTL EACH EYE SCH (20:38)
[2017-04-15] MEDS: MIRTAZAPINE 15 MG TAB PO SCH (20:57)
[2017-04-15] MEDS: LEVOFLOXACIN 750 MG PREMIX INJ 150 ML IV SCH (23:18)
[2017-04-16] VITALS: BP 136/66; PULSE 62; RESP 18; TEMP 97.8; O2SAT 95
[2017-04-16 04:00] VITALS: BP 148/74; PULSE 64; RESP 18; TEMP 97.6; O2SAT 97
[2017-04-16] MEDS: LEVOTHYROXINE SODIUM 150 MCG TAB PO SCH (05:31)
[2017-04-16 07:27] VITALS: O2SAT 96
[2017-04-16] MEDS: RESP: ALBUTEROL 2.5 MG/IPRATROPIUM 0.5 MG NEB (SCH) NEB ×2 (07:27→11:36)
[2017-04-16 08:00] VITALS: BP 147/65; PULSE 56; RESP 18; TEMP 95.6; O2SAT 93
[2017-04-16] MEDS: BUDESONIDE-FORMOTEROL 160/4.5 MCG INHALER INH SCH (08:51)
[2017-04-16] MEDS: TIMOLOL MALEATE 0.5% OPHT SOLN 5 ML BTL EACH EYE SCH (08:51)
[2017-04-16] MEDS: PANTOPRAZOLE SOD 40 MG DELAYED RELEASE TAB PO SCH (08:52)
[2017-04-16] MEDS: predniSONE 20 MG TAB PO SCH (08:52)
[2017-04-16] MEDS: ASPIRIN EC 81 MG TABEC PO SCH (08:52)
[2017-04-16] MEDS: MONTELUKAST SODIUM 10 MG TAB PO SCH (08:52)
[2017-04-16] MEDS: DILTIAZEM-CD 120 MG CAP ER PO SCH (08:52)
[2017-04-16] MEDS: DOCUSATE SODIUM 50 MG/SENNA 8.6 MG TAB PO SCH (08:52)
[2017-04-16] MEDS: FLUoxetine HCL 20 MG CAP PO SCH (08:52)
[2017-04-16] MEDS: guaiFENesin E.R. 600 MG TAB PO SCH (08:52)
[2017-04-16] MEDS: FUROSEMIDE 40 MG TAB PO SCH (08:53)
[2017-04-16] MEDS: MAGNESIUM OXIDE 400 MG TAB PO SCH (08:53)
[2017-04-16] MEDS: SODIUM CHLORIDE 0.9% FLUSH 10 ML FLUSH IV FLUSH SCH (08:53)
[2017-04-16 12:00] VITALS: BP 128/64; PULSE 78; RESP 17; TEMP 96.9; O2SAT 95
[2017-04-16] MEDS ORDERED: LEVO500T8 PO (13:49)
[2017-04-16] MEDS ORDERED: PRED20 PO (13:49)
[2017-04-16] MEDS ORDERED: SYMB160A INH (13:51)
--- NOTE | 2017-04-16 13:52 | HHI.DCPOC ---
Discharge Care Plan Diagnosis: (1) Hypoxia (2) UTI (urinary tract infection) (3) PNA (pneumonia) (4) COPD exacerbation (5) Acute and chronic respiratory failure Goals to Promote Your Health * To prevent worsening of your condition and complications * To maintain your health at the optimal level Directions to Meet Your Goals Take your medications as prescribed Follow your dietary instruction Follow activity as directed Keep your appointments as scheduled Take your immunizations and boosters as scheduled If your symptoms worsen call your PCP, if no PCP go to Urgent Care Center or Emergency Room Smoking is Dangerous to Your Health. Avoid second hand smoke Call the 24-hour hour crisis hotline for domestic abuse at Demond Smith MD Apr 16, 2017 13:52
--- NOTE | 2017-04-16 13:57 | HHI.FF ---
Face to Face Verification Diagnosis: (1) Acute and chronic respiratory failure (2) COPD exacerbation (3) PNA (pneumonia) (4) UTI (urinary tract infection) (5) Hypoxia Physical Therapy Order: Evaluate and Treat Home Health Nursing Order: Signs/symptoms of disease process Medication education-adverse effect Nursing assessment with vital signs I have seen patient Sary Kuhn on 04/16/17. My clinical findings support the need for the requested home health care services because: Patient has SOB Limited ability to care for self Need for psychosocial assistance Infection w/ risk of complications I certify that my clinical findings support that this patient is homebound because: Hx COPD- exertion dyspnea/weakness Unsafe to leave home unassisted Unable to use public transportation Demond Smith MD Apr 16, 2017 13:57
--- NOTE | 2017-04-16 14:00 | HHI.DS ---
cc: Belkis Wu MD Discharge Summary Admission Date Apr 13, 2017 at 23:01 Discharge Date: Apr 16, 2017 Admitting Diagnosis right lower lobe pneumonia (1) COPD exacerbation ICD Code: J44.1 Diagnosis: Principal (2) PNA (pneumonia) ICD Code: J18.9 Diagnosis: Principal (3) UTI (urinary tract infection) ICD Code: N39.0 Diagnosis: Principal (4) Hypoxia ICD Code: R09.02 Diagnosis: Principal (5) Acute and chronic respiratory failure ICD Code: J96.20 Diagnosis: Principal Procedures None Brief History - From Admission Is a 57-year-old female with a PMH of COPD, O2 Dependent, HTN, Hyperlipidemia and Bipolar/Schizophrenia who is brought to the ER by EMS secondary to complaints of SOB x2 days. Normally on 3L NC at home w/ increased O2 requirements since yesterday. Denies fever or chills. Reports non-productive cough. On arrival, BP 163/73, HR 80, O2 sat 85% on RA, Afebrile. CBC unremarkable. Chemistry essentially unremarkable. Troponin negative. D-dimer 0.94. UA positive for UTI. CTA Pulm negative for PE, +patchy air space disease in RLL, bronchopneumonia, pulmonary fibrosis and air trapping w/ bronchiectasis at bases. S/p Solu-Medrol, DuoNeb and Levaquin in ER. CBC/BMP: 04/14/17 0445 04/14/17 0445 Significant Findings Laboratory Tests Test 04/13/17 04/13/17 04/13/17 04/13/17 17:58 18:04 18:15 19:52 Neutrophils (%) (Auto) 75.5 % (16.0-70.0) Carbon Dioxide Level 32.1 MEQ/L (21.0-32.0) Random Glucose 113 MG/DL (74-106) Aspartate Amino Transf 14 U/L (15-37) (AST/SGOT) Total Creatine Kinase 24 U/L (26-192) Troponin I LESS THAN 0.02 NG/ML (0.02-0.05) Albumin 3.2 GM/DL (3.4-5.0) D-Dimer Quantitative (PE/DVT) 0.94 MG/L FEU (0.00-0.50) Blood Gas HCO3 35 mmol/L (22-26) Blood Gas Base Excess 9.6 mmol/L (-2-2) Arterial Blood Partial 56 mmHg (38-42) Pressure CO2 Arterial Blood Partial 156 mmHG Pressure O2 (61-120) Urine Turbidity HAZY (CLEAR) Urine Leukocyte Esterase LARGE (NEG) Urine WBC 31 /hpf (0-5) Urine Calcium Oxalate Crystals OCC /hpf (NONE) Urine Bacteria OCC /hpf (NONE) Urine Mucus FEW /lpf (OCC) Test 04/14/17 04:45 Neutrophils (%) (Auto) 93.6 % (16.0-70.0) Lymphocytes (%) (Auto) 5.7 % (9.0-44.0) Lymphocytes # (Auto) 0.4 TH/MM3 (1.0-4.8) Chloride Level 97 MEQ/L (98-107) Carbon Dioxide Level 32.5 MEQ/L (21.0-32.0) Estimat Glomerular Filtration 87 ML/MIN (>89) Rate Random Glucose 210 MG/DL (74-106) Aspartate Amino Transf 12 U/L (15-37) (AST/SGOT) Albumin 3.0 GM/DL (3.4-5.0) Imaging Last Impressions CT Angiography 04/13/17 1947 Signed Impressions: Service Date/Time: Thursday, April 13, 2017 21:59 - CONCLUSION: 1. Negative for pulmonary embolus. 2. Patchy new air space disease in the right lower lobe compared with January 03 is in the bronchopneumonia. 3. Chronic underlying nonspecific appearing pulmonary fibrosis with some air trapping ground glass opacity as well as some traction bronchiectasis at the lung bases. Keaton Ureña MD Chest X-Ray 04/13/17 0000 Signed Impressions: Service Date/Time: Thursday, April 13, 2017 23:13 - CONCLUSION: Mild streaky opacity in the perihilar regions and lung bases which may represent scarring. There is no new consolidation. [place] Yee MD PE at Discharge GENERAL: Middle-aged female in no acute distress. HEENT: PERRLA, EOMI. No scleral icterus or conjunctival pallor. No lid lag or facial droop. CARDIOVASCULAR: Regular rate and rhythm. No obvious murmurs to auscultation. No chest tenderness to palpation. RESPIRATORY: No obvious rhonchi. Clear to auscultation bilaterally with very scattered rhonchi. GASTROINTESTINAL: Abdomen soft, non-tender, nondistended. BS normal. MUSCULOSKELETAL: Extremities without clubbing, cyanosis, or edema. No obvious deformities. NEUROLOGICAL: Awake, alert and oriented x4. No focal neurologic deficits. Moving both upper and lower extremities spontaneously. Pt update on day of discharge Patient denies cp. Sob has improved back to baseline. Hospital Course 1. COPD Exacerbation: Chronic Respiratory Failure with Acute Exacerbation. O2 Dependent on 3L NC. +wheezing on exam, s/p Solu-Medrol and DuoNeb in ER, will continue w/ Solu-Medrol, DuoNeb, Symbicort, Mucinex. Monitor O2. CTA w/ pulmonary fibrosis, air trapping and bronchiectasis. The patient was started on Solu-Medrol IV which was tapered to prednisone. Pulmonology was consulted. The patient was seen in consultation by Dr. le who recommended chemotherapy and is continue Solu-Medrol as her oral prednisone 20 mg by mouth twice a day. Patient was also treated with DuoNeb's nebulizers treatments. Home Symbicort was continued as well. The patient was placed on IV antibiotics. Patient doing great on date of discharge, will be discharged home on oral steroids, inhaled steroids, oral antibiotics and supplemental oxygen. 2. PNA: CTA Pulm negative for PE, +bronchopneumonia RLL, images reviewed by me. +non-productive cough. S/p Levaquin in ER, will continue w/ IV Abx. 04/15 blood cultures negative 3. 3. Hypoxia: O2 sat 85% upon arrival, currently 94% on 4L NC. Multifactorial- secondary to COPD and PNA. 4. UTI: U/a w/ UTI. Treated with IV Levaquin. Patient had a negative urine culture on 04/14. Will be discharged on oral Levaquin. 5. DVT Prophylaxis: SCD/Teds. Pt Condition on Discharge: Stable Discharge Disposition: Disch w/ Home Health Serv Discharge Time: > 30 minutes Discharge Instructions DIET: Follow Instructions for: As Tolerated, No Restrictions Activities you can perform: Regular-No Restrictions Follow up Referrals: PCP Follow-up - 2-3 Days Pulmonology - 1 Week with Belkis Wu MD New Medications: Levofloxacin (Levofloxacin) 500 Mg Tablet 500 MG PO DAILY Infection #7 Ref 0 TAB Prednisone (Prednisone) 20 Mg Tab 20 MG PO DIRECTED 40 MG twice a day x 3 days, then 20 MG daily x 3 days, then 10 MG daily x 3 days Inflammation #11 Ref 0 TAB Budesonide-Formoterol Inh (Symbicort Inh) 160-4.5 Mcg/Act Aero 2 PUFF INH Q12HR Shortness of Breath #1 INHALER Continued Medications: Albuterol 6.7 GM Inh (Proventil Hfa 6.7 GM Inh) 90 Mcg/Act Aer 2 PUFF INH Q4-6H PRN SHORTNESS OF BREATH #1 Ref [address] (Aspirin EC) 81 Mg Tabdr 81 MG PO DAILY Ref 0 TAB Diltiazem ER 24 HR (Diltiazem ER 24 HR) 120 Mg Caper 120 MG PO DAILY Ref 0 CAP Fluoxetine (Fluoxetine) 20 Mg Tab 20 MG PO DAILY #30 Ref 0 TAB Furosemide (Furosemide) 40 Mg Tab 40 MG PO BID #60 Ref 0 TAB Latanoprost Opth Drops (Latanoprost Opth Drops) 0.005% Drops 1 DROP EACH EYE HS Refrigerate until opened. Glaucoma #2.5 Ref 0 ML Levothyroxine (Levothyroxine) 150 Mcg Tab 150 MCG PO DAILY Thyroid #30 Ref 0 TAB Lorazepam (Lorazepam) 1 Mg Tab 2 MG PO Q12HR PRN ANXIETY AND/OR INSOMNIA Ref 0 TAB Mirtazapine (Mirtazapine) 30 Mg Tab 60 MG PO HS Depression Control #30 Ref 0 TAB Montelukast (Montelukast) 10 Mg Tab 10 MG PO DAILY #30 Ref 0 TAB Omeprazole (Omeprazole) 40 Mg Cap 40 MG PO DAILY #30 Ref 0 CAP Timolol Opth Drops (Timolol Opth Drops) 0.5 % Soln 1 DROP EACH EYE BID Glaucoma #1 Ref 0 BOTTLE Discontinued Medications: Magnesium Oxide (Magnesium Oxide) 500 Mg Tab 500 MG PO DAILY Days 30 Ref 0 TAB Potassium Chloride ER (Potassium Chloride ER) 10 Meq Cap 10 MEQ PO DAILY Electrolyte Replacement #30 Ref 0 CAP Demond Smith MD Apr 16, 2017 13:59
== END 2017-04-16 15:12 | disposition home health service (06) | DRG 190 ==
LOC: NEPE 17:50 → NEDA 23:01 → N07B 04-14 00:59
PROVIDERS: ADMIT Hospitalist; ATTEND Hospitalist
DX: J44.0 Chronic obstructive pulmonary disease with (acute) lower respiratory infection (principal); J18.9 Pneumonia, unspecified organism; J96.21 Acute and chronic respiratory failure with hypoxia; J84.10 Pulmonary fibrosis, unspecified; J47.0 Bronchiectasis with acute lower respiratory infection; I50.9 Heart failure, unspecified; N39.0 Urinary tract infection, site not specified; Z99.81 Dependence on supplemental oxygen; J44.1 Chronic obstructive pulmonary disease with (acute) exacerbation; F20.9 Schizophrenia, unspecified; F31.9 Bipolar disorder, unspecified; E78.5 Hyperlipidemia, unspecified; I10 Essential (primary) hypertension; E03.9 Hypothyroidism, unspecified; K21.9 Gastro-esophageal reflux disease without esophagitis; Z87.891 Personal history of nicotine dependence
CPT/HCPCS: 36600; 71010; 71275; 80053; 81001; 82550; 82805; 83605; 83880; 84484; 85025; 85379; 85610; 85730; 87040; 87086; 93005; 94640; 94664; 96374; J1956; J2920; J2930; J7512; Q9967

== ENCOUNTER 2018-01-14 15:02 | Emergency (ER) | payer MEDICAID ==
[~2018-01-14] VITALS: Ht 172.7 cm; Wt 111.4 kg
[~2018-01-14 15:02] MED LIST changes: -ASPI81TA11 PO; +ASPI81TA23 PO; -FLUT50SP EACH NARE; -HYDR-3533 PO; +LEVO500T8 PO; -MAGN500T2 PO; -POTA10CA PO; +PRED20 PO; +SYMB160A INH
[2018-01-14 15:19] VITALS: BP 152/75; PULSE 85; RESP 20; TEMP 98.9; O2SAT 93
--- NOTE | 2018-01-14 15:49 | RADRPT ---
EXAM DATE/TIME: 01/14/2018 15:40 [facility] COMPARISON: No previous studies available for comparison. INDICATIONS : Short of breath. MEDICAL HISTORY : Chronic obstructive pulmonary disease. Hypertension on oxygen SURGICAL HISTORY : biopsy right lung- emphysema ENCOUNTER: Initial ACUITY: 4 - 6 days PAIN SCORE: 0/10 LOCATION: Bilateral chest FINDINGS: Scattered atelectasis/scarring is noted within the perihilar and bibasilar regions. The heart is norm al. No alveolar consolidation is noted. Degenerative changes are noted throughout the thoracic spine. CONCLUSION: 1. Scattered atelectasis/scarring within the perihilar and bibasilar regions. 2. Degenerative changes throughout the thoracic spine Alexei Guillen MD on January 14, 2018 at 15:46 Board Certified Radiologist. This report was verified electronically.
[2018-01-14 16:44] LABS: AUTOMATED NEUTROPHIL # 8.6 TH/MM3 (1.8-7.7); BASOPHIL # 0.1 TH/MM3 (0-0.2); BASOPHIL % 1.2 % (0.0-2.0); EOSINOPHIL # 0.3 TH/MM3 (0-0.4); EOSINOPHIL % 3.3 % (0.0-4.0); HEMATOCRIT 39.5 % (35.0-46.0); LYMPH % 6.9 % (9.0-44.0); LYMPHOCYTE # 0.7 TH/MM3 (1.0-4.8); MEAN CELL VOLUME 93.3 FL (80.0-100.0); MEAN CORPUSCULAR HGB CONC 35.4 % (32.0-36.0); MEAN PLATELET VOLUME 8.2 FL (7.0-11.0); MONO % 6.7 % (0.0-8.0); MONOCYTE # 0.7 TH/MM3 (0-0.9); NEUT % 81.9 % (16.0-70.0); PLATELET COUNT 263 TH/MM3 (150-450); RED BLOOD COUNT 4.23 MIL/MM3 (4.00-5.30); RED CELL DISTRIBUTION WIDTH 13.9 % (11.6-17.2); WHITE BLOOD COUNT 10.5 TH/MM3 (4.0-11.0)
[2018-01-14 16:53] LABS: ALBUMIN 3.4 GM/DL (3.4-5.0); AST (GOT) 20 U/L (15-37); BICARBONATE 32.8 MEQ/L (21.0-32.0); BLOOD UREA NITROGEN 8 MG/DL (7-18); CALCIUM 9.3 MG/DL (8.5-10.1); CHLORIDE 97 MEQ/L (98-107); CREATININE 0.71 MG/DL (0.50-1.00); GLOMERULAR FILTRATION RATE 84 ML/MIN (>89); GLUCOSE,RANDOM 134 MG/DL (74-106); MAGNESIUM 2.2 MG/DL (1.5-2.5); SODIUM (NA) 137 MEQ/L (136-145)
[2018-01-14 16:58] LABS: ALKALINE PHOSPHATASE 104 U/L (45-117); ALT (GPT) 23 U/L (10-53); TOTAL BILIRUBIN ADULT 0.3 MG/DL (0.2-1.0)
[2018-01-14] MEDS ORDERED: predniSONE 50 MG TAB PO ONE (17:45)
--- NOTE | 2018-01-14 17:51 | PD ---
HPI Chief Complaint: Cold / Flu Symptoms Time Seen by Provider: 17:40 Travel History International Travel<30 days: No Contact w/Intl Traveler<30days: No Traveled to known affect area: No History of Present Illness HPI 58-year-old female with history of COPD/pulmonary fibrosis on 3 L nasal cannula , here for evaluation of feeling sick for the last 5 days. Patient reports cough productive of yellowish sputum, sore throat, and noticing pus in her throat. She also feels nauseous. No chest pain. No abdominal pain. No hemoptysis. She has had subjective fevers and chills. Her pipe line gauger is Dr. Bryce WEAVER Past Medical History Hx Anticoagulant Therapy: Yes (ASA) Arthritis: No Asthma: Yes Autoimmune Disease: No Anxiety: No Depression: No Heart Rhythm Problems: No Cancer: No Cardiovascular Problems: Yes (HTN) High Cholesterol: Yes Chest Pain: No Congestive Heart Failure: Yes COPD: Yes (uses o2 3 lilt at home) Cerebrovascular Accident: No Diabetes: Yes Diminished Hearing: No Endocrine: No Gastrointestinal Disorders: Yes GERD: Yes Genitourinary: Yes Headaches: No Hepatitis: No Hiatal Hernia: No Hypertension: Yes (HTN ) Immune Disorder: No Kidney Stones: Yes Musculoskeletal: No Neurologic: No Psychiatric: Yes (bipolar) Reproductive: No Respiratory: Yes Immunizations Current: Yes Migraines: No Myocardial Infarction: No Seizures: No Thyroid Disease: Yes (HYPOTHYROID ) Ulcer: Yes (ACID REFLEX) PNEUMOCCOCAL Vaccine (Year): 2008 Menopausal: Yes Past Surgical History Abdominal Surgery: Yes (choly) Cardiac Surgery: No Cholecystectomy: Yes Ear Surgery: No Endocrine Surgery: No Genitourinary Surgery: Yes (lithotripsy ) Gynecologic Surgery: No Oral Surgery: Yes (REMOVAL OF TEETH/ DENTURES) Pacemaker: No Thoracic Surgery: Yes (lung biosy) Other Surgery: Yes (GALL BLADDER, LITHOTRIPSY, GLAUCOMA SX, I&D RIGHT KNEE ) Social History Alcohol Use: No Tobacco Use: No Substance Use: No Allergies-Medications (Allergen,Severity, Reaction): Coded Allergies: Sulfa (Sulfonamide Antibiotics) (Unverified Allergy, Severe, UNKNOWN, 01/14) latex (Unverified Allergy, Severe, RASH, 01/14/18) Reported Meds & Prescriptions Reported Meds & Active Scripts Active Symbicort Inh (Budesonide/Formoterol Fumarate) 160-4.5 Mcg/Act Aero 2 Puff INH Q12HR Levofloxacin 500 Mg Tablet 500 Mg PO DAILY Prednisone 20 Mg Tab 20 Mg PO DIRECTED 40 MG twice a day x 3 days, then 20 MG daily x 3 days, then 10 MG daily x 3 days Reported Proventil Hfa 6.7 GM Inh (Albuterol Sulfate) 90 Mcg/Act Aer 2 Puff INH Q4-6H PRN Timolol Opth Drops 0.5 % Soln 1 Drop EACH EYE BID Latanoprost Opth Drops (Latanoprost) 0.005% Drops 1 Drop EACH EYE HS Refrigerate until opened. Furosemide 40 Mg Tab 40 Mg PO BID Omeprazole 40 Mg Cap 40 Mg PO DAILY Fluoxetine (Fluoxetine HCl) 20 Mg Tab 20 Mg PO DAILY Montelukast (Montelukast Sodium) 10 Mg Tab 10 Mg PO DAILY Levothyroxine (Levothyroxine Sodium) 150 Mcg Tab 150 Mcg PO DAILY Mirtazapine 30 Mg Tab 60 Mg PO HS Lorazepam 1 Mg Tab 2 Mg PO Q12HR PRN Aspirin EC (Aspirin) 81 Mg Tabdr 81 Mg PO DAILY Diltiazem ER 24 HR (Diltiazem HCl) 120 Mg Caper 120 Mg PO DAILY Review of Systems Except as stated in HPI: all other systems reviewed are Neg Physical Exam Narrative GENERAL: Well-developed, well-nourished, sitting comfortably in stretcher, no apparent distress. SKIN: Focused skin assessment warm/dry. HEAD: Atraumatic. Normocephalic. EYES: Pupils equal and round. No scleral icterus. No injection or drainage. ENT: Mucous membranes pink and moist. Pharynx with moderate erythema without obvious exudates. Uvula is midline. Normal phonation. No drooling or stridor. No trismus. NECK: Trachea midline. No JVD. CARDIOVASCULAR: Regular rate and rhythm. RESPIRATORY: No accessory muscle use. Inspiratory and expiratory wheezes bilaterally. Breath sounds equal bilaterally. MUSCULOSKELETAL: No obvious deformities. No clubbing. No cyanosis. No edema. NEUROLOGICAL: Awake and alert. No obvious cranial nerve deficits. Motor grossly within normal limits. Normal speech. PSYCHIATRIC: Appropriate mood and affect; insight and judgment normal. Data Data Last Documented VS Vital Signs Date Time Temp Pulse Resp B/P (MAP) Pulse Ox O2 Delivery O2 Flow Rate FiO2 01/14/18 18:18 97 Nasal Cannula 3.00 01/14/18 17:57 78 20 01/14/18 17:56 148/70 (96) 01/14/18 15:19 98.9 Orders Orders Complete Blood Count With Diff (01/14/18 15:21) Comprehensive Metabolic Panel (01/14/18 15:21) B-Type Natriuretic Peptide (01/14/18 15:21) Magnesium (Mg) (01/14/18 15:21) Chest, Pa & Lat (01/14/18 15:21) Influenzae A/B Antigen (01/14/18 17:45) Group A Rapid Strep Screen (01/14/18 17:45) Albuterol-Ipratropium Neb (Duoneb Neb) (01/14/18 17:45) Prednisone (Deltasone) (01/14/18 17:45) Strep Culture (Group A) (01/14/18 18:00) Cefuroxime (Ceftin) (01/14/18 19:00) Labs Laboratory Tests Test 01/14/18 16:16 White Blood Count 10.5 TH/MM3 Red Blood Count 4.23 MIL/MM3 Hemoglobin 14.0 GM/DL Hematocrit 39.5 % Mean Corpuscular Volume 93.3 FL Mean Corpuscular Hemoglobin 33.0 PG Mean Corpuscular Hemoglobin Concent 35.4 % Red Cell Distribution Width 13.9 % Platelet Count 263 TH/MM3 Mean Platelet Volume 8.2 FL Neutrophils (%) (Auto) 81.9 % Lymphocytes (%) (Auto) 6.9 % Monocytes (%) (Auto) 6.7 % Eosinophils (%) (Auto) 3.3 % Basophils (%) (Auto) 1.2 % Neutrophils # (Auto) 8.6 TH/MM3 Lymphocytes # (Auto) 0.7 TH/MM3 Monocytes # (Auto) 0.7 TH/MM3 Eosinophils # (Auto) 0.3 TH/MM3 Basophils # (Auto) 0.1 TH/MM3 CBC Comment DIFF FINAL Differential Comment Blood Urea Nitrogen 8 MG/DL Creatinine 0.71 MG/DL Random Glucose 134 MG/DL Total Protein 8.0 GM/DL Albumin 3.4 GM/DL Calcium Level 9.3 MG/DL Magnesium Level 2.2 MG/DL Alkaline Phosphatase 104 U/L Aspartate Amino Transf (AST/SGOT) 20 U/L Alanine Aminotransferase (ALT/SGPT) 23 U/L Total Bilirubin 0.3 MG/DL Sodium Level 137 MEQ/L Potassium Level 3.7 MEQ/L Chloride Level 97 MEQ/L Carbon Dioxide Level 32.8 MEQ/L Anion Gap 7 MEQ/L Estimat Glomerular Filtration Rate 84 ML/MIN B-Type Natriuretic Peptide 23 PG/ML MDM Medical Decision Making Medical Screen Exam Complete: Yes Emergency Medical Condition: Yes Differential Diagnosis COPD exacerbation, pneumonia, influenza, strep pharyngitis Narrative Course Vital signs show heart rate 85, blood pressure 152/75, pulse ox 93% on room air , oral temperature 98.9F. CBC: WBC 10.5, hemoglobin 14, hematocrit 39.5, platelets 263, neutrophils 82%. CMP is remarkable for bicarb 32.8, otherwise unremarkable. BNP is 23. Influenza is negative. Group A strep is negative. Chest x-ray: CONCLUSION: 1. Scattered atelectasis/scarring within the perihilar and bibasilar regions. 2. Degenerative changes throughout the thoracic spine The patient was given 3 DuoNeb treatments and prednisone, and on reassessment she feels improved. Her wheezing has resolved. Plan is to start her on Ceftin for her upper respiratory symptoms with cough productive of yellowish sputum and to discharge her home with a prescription for prednisone. PMD/pulmonary follow-up this week. She was advised on when to return to the emergency department. She verbalizes understanding and agreement with plan. Diagnosis Primary Impression: COPD exacerbation Additional Impression: Bronchitis Referrals: Primary Care Physician 3 days [employer] 3 days Additional Instructions: Follow-up with your primary care physician this week. Follow-up with your pipe line gauger this week. Return to the emergency department for worsening symptoms or any other concerns. Scripts Prednisone (Prednisone) 50 Mg Tab 50 MG PO DAILY for 5 Days, #5 TAB 0 Refills Prov: Wild Vega MD 01/14/18 Cefuroxime (Ceftin) 250 Mg Tab 500 MG PO BID for 10 Days, #40 TAB Prov: Wild Vega MD 01/14/18 Disposition: 01 DISCHARGE HOME Condition: Stable Wild Vega MD Jan 14, 2018 17:51
[2018-01-14 17:56] VITALS: BP 148/70; PULSE 78; RESP 20; O2SAT 96
[2018-01-14] MEDS: RESP: ALBUTEROL 2.5 MG/IPRATROPIUM 0.5 MG NEB (SCH) INH (18:15)
[2018-01-14 18:18] VITALS: O2SAT 97
[2018-01-14] MEDS ORDERED: CEFU1TAB18 PO (18:53)
[2018-01-14] MEDS ORDERED: PRED50 PO (18:53)
[2018-01-14] MEDS ORDERED: CEFUROXIME AXETIL 500 MG TAB PO ONE (19:00)
== END 2018-01-14 19:42 | disposition home or self-care (01) ==
LOC: NEPD 15:02
DX: J44.1 Chronic obstructive pulmonary disease with (acute) exacerbation (principal); J44.0 Chronic obstructive pulmonary disease with (acute) lower respiratory infection; J20.9 Acute bronchitis, unspecified; E03.9 Hypothyroidism, unspecified; K21.9 Gastro-esophageal reflux disease without esophagitis; I11.0 Hypertensive heart disease with heart failure; I50.9 Heart failure, unspecified; Z79.899 Other long term (current) drug therapy
CPT/HCPCS: 71046; 80053; 83735; 83880; 85025; 87081; 87804; 87880; 94664; 99284; J7512

== ENCOUNTER 2018-12-14 15:57 | Inpatient (IN) ==
[2018-12-14] MEDS ORDERED: MethylPREDNISolone Sod Succinate Inj 125 MG/2 ML Vial IV.PUSH ONE (16:02)
--- NOTE | 2018-12-14 16:19 | ED ---
HPI General Chief Complaint: Shortness of Breath/Dyspnea Stated Complaint: Resp Time Seen by Provider: 12/14/18 16:02 Source: patient Mode of arrival: wheelchair Limitations: no limitations History of Present Illness The patient is a 58-year-old female who presents to the emergency department via private vehicle for shortness of breath. The patient has a history of interstitial lung disease and COPD, is on oxygen at home 3 L via nasal cannula and concentrator. The patient is followed by her carpet inspector finished, Dr. Nicholas, who placed the patient on prednisone and Levaquin yesterday. However, the patient states her symptoms have progressively worsened and she notes a fever last night of 102. She also complains of increasing productive cough, shortness of breath with exertion, and shortness of breath with coughing. Symptoms are moderate to severe and progressive. The patient denies any known history of pulmonary embolism or DVT. The patient does note a history of congestive heart failure. The patient states she did not receive an influenza vaccination this year because of pulmonary illness. The patient does note mild nausea, one episode of vomiting, and diarrhea over the last several days. The patient states she is followed by primary physician in [place], [place], but cannot recall the physician's name. MD Complaint: Reports shortness of breath Onset (ago): day(s) Context: Reports recent illness Severity: similar to previous episodes Consistency/Duration: progressively worsening Relieving factors: nothing Exacerbating factors: exertion, coughing and talking Known history of: Reports COPD Associated symptoms: Reports cough, sputum production, chest congestion and lightheadedness Treatment prior to arrival: Reports oxygen, bronchodilator and other Related Data Home oxygen amount: 3 liters Home Medications Medication Instructions Recorded Confirmed albuterol sulfate [Ventolin HFA] 2 puff INHALATION Q4-6H PRN 12/14/18 12/14/18 aspirin 81 mg PO DAILY 12/14/18 12/14/18 diltiazem HCl 120 mg PO DAILY 12/14/18 12/14/18 fluoxetine 20 mg PO DAILY 12/14/18 12/14/18 fluticasone-salmeterol [Advair 1 inh INHALATION BID 12/14/18 12/14/18 Diskus] furosemide 40 mg PO BID 12/14/18 12/14/18 levothyroxine 150 mcg PO DAILY 12/14/18 12/14/18 lorazepam 2 mg PO DAILY 12/14/18 12/14/18 mirtazapine 30 mg PO DAILY 12/14/18 12/14/18 omeprazole 40 mg PO DAILY 12/14/18 12/14/18 potassium chloride 10 meq PO DAILY 12/14/18 12/14/18 Allergies Allergy/AdvReac Type Severity Reaction Status Date / Time latex Allergy Severe RASH Verified 12/14/18 18:20 Sulfa (Sulfonamide Allergy Severe UNKNOWN Verified 12/14/18 18:20 Antibiotics) Review of Systems ROS: all other systems reviewed are negative [facility] Medical History Medical History A-fib (Acute) CHF (congestive heart failure) (Acute) COPD (chronic obstructive pulmonary disease) (Acute) Diabetes (Acute) Interstitial lung disease (Acute) Social History Social History Substance History: No History of Abuse Smoking Status: Former smoker How Often Do You Have a Drink Containing Alcohol: Never Recent Travel in [facility] within the Last 8 Weeks: No Recent Out of Country Travel within the Last 8 Weeks: No Immunization History Tetanus Immunization: Unsure Exam Narrative Exam Narrative: GENERAL: Awake, alert, 4-year-old female who is in moderate respiratory distress. SKIN: Focused skin assessment warm/dry. HEAD: Atraumatic. Normocephalic. EYES: Pupils equal and round. No scleral icterus. No injection or drainage. ENT: No nasal bleeding or discharge. Perioral cyanosis. NECK: Trachea midline. No JVD. CARDIOVASCULAR: Regular, tachycardic with a heart rate of 100. RESPIRATORY: Tachypnea. Diminished breath sounds with a few crackles in the right base. GASTROINTESTINAL: Abdomen soft, non-tender, nondistended. No rebound tenderness , guarding, rigidity. MUSCULOSKELETAL: No obvious deformities. No clubbing. No cyanosis. No edema. NEUROLOGICAL: Awake and alert. No obvious cranial nerve deficits. Motor grossly within normal limits. Normal speech. PSYCHIATRIC: Appropriate mood and affect; insight and judgment normal. Course Initial Documented Vital Signs Pulse Oximetry 60 L 12/14/18 15:57 Last Documented Vital Signs Temperature 100.6 F H 12/14/18 16:07 Pulse Rate 98 H 02/10/19 16:15 Respiratory Rate 28 H 12/14/18 16:15 Blood Pressure 176/81 H 12/14/18 16:07 Pulse Oximetry 97 12/14/18 16:26 Medical Decision Making MDM Narrative Medical decision making narrative: IV was established, labs are drawn and sent, and the patient was placed on cardiac telemetry monitoring and continuous pulse oximetry monitoring. EKG was ordered and interpreted. Chest x-ray was obtained. Patient's oxygen level when she arrived was 60% on 3 L via nasal cannula, therefore, the patient was placed on a nonrebreather which brought her oxygen saturation up to 100%. We will attempt to wean the oxygen as she is on chronic oxygen, ABG was performed. Influenza screen was sent to lab. Medical Screen Exam Complete: Yes Emergency Medical Condition: Yes Differential Diagnosis Differential Diagnosis: Differential diagnosis includes interstitial lung disease, pulmonary fibrosis, COPD exacerbation, pneumonia, pleural effusion, congestive heart failure, pulmonary embolism, hypoxia, lactic acidosis, sepsis. Lab Data Result diagrams: 12/14/18 16:10 12/14/18 16:10 Lab Results 12/14/18 12/14/18 12/14/18 Range/Units 14:10 16:10 16:10 WBC 8.6 (4.0-11.0) th/mm3 RBC 4.32 (4.00-5.30) mil/mm3 Hgb 13.2 (11.6-15.3) gm/dL Hct 39.1 (35.0-46.0) % MCV 90.5 (80.0-100.0) fL MCH 30.6 (27.0-34.0) pg MCHC 33.8 (32.0-36.0) % RDW 14.0 (11.6-17.2) % Plt Count 254 (150-450) th/mm3 MPV 8.6 (7.0-11.0) fL Neut % (Auto) 88.8 H (16.0-70.0) % Lymph % (Auto) 3.7 L (9.0-44.0) % Nicholas % (Auto) 7.1 (0.0-8.0) % Eos % (Auto) 0.0 (0.0-4.0) % Baso % (Auto) 0.4 (0.0-2.0) % Neut # (Auto) 7.6 (1.8-7.7) th/mm3 Lymph # (Auto) 0.3 L (1.0-4.8) th/mm3 Nicholas # (Auto) 0.6 (0.0-0.9) th/mm3 Eos # (Auto) 0.0 (0.0-0.4) th/mm3 Baso # (Auto) 0.0 (0.0-0.2) th/mm3 WBC Differential . Differential Comment Auto diff final Puncture Site Left radial Patient Temperature 98.6 O2 Saturation 98 (90-100) % ABG pH 7.43 H (7.380-7.420) ABG pCO2 50 H (38-42) mmHg ABG pO2 212 H (61-120) mmHg ABG HCO3 33 H (22-26) mmol/L ABG O2 Content 17.9 (12.0-20.0) Vol % ABG Base Excess 8.0 H (-2-2) mmol/L ABG Methemoglobin 0.7 (0-2) % Mal Test Present Hemoglobin 12.7 (12.0-16.0) G/DL Carboxyhemoglobin 1.3 (0-4) % O2 Delivery Device Nrb Liter Flow 15.00 L/M Critical Value No Sodium 138 (136-145) meq/L Potassium 2.8 L* (3.5-5.1) meq/L Chloride 96 L (98-107) meq/L Carbon Dioxide 34.2 H (21.0-32.0) meq/L Anion Gap 8 (5-15) meq/L BUN 12 (7-18) mg/dL Creatinine 0.86 (0.50-1.00) mg/dL Estimated GFR 67 L (>89) mL/min Random Glucose 164 H (74-106) mg/dL Calcium 9.4 (8.5-10.1) mg/dL Magnesium 2.2 (1.5-2.5) mg/dL Total Bilirubin 0.3 (0.2-1.0) mg/dL AST 16 (15-37) U/L ALT 17 (10-53) U/L Alkaline Phosphatase 94 (45-117) U/L Total Creatine Kinase 21 L (26-192) U/L Troponin I Less than 0.02 L (0.02-0.05) ng/mL B-Natriuretic Peptide (0-100) pg/mL Total Protein 9.0 H (6.4-8.2) g/dL Albumin 3.4 (3.4-5.0) g/dL 12/14/18 Range/Units 16:10 WBC (4.0-11.0) th/mm3 RBC (4.00-5.30) mil/mm3 Hgb (11.6-15.3) gm/dL Hct (35.0-46.0) % MCV (80.0-100.0) fL MCH (27.0-34.0) pg MCHC (32.0-36.0) % RDW (11.6-17.2) % Plt Count (150-450) th/mm3 MPV (7.0-11.0) fL Neut % (Auto) (16.0-70.0) % Lymph % (Auto) (9.0-44.0) % Nicholas % (Auto) (0.0-8.0) % Eos % (Auto) (0.0-4.0) % Baso % (Auto) (0.0-2.0) % Neut # (Auto) (1.8-7.7) th/mm3 Lymph # (Auto) (1.0-4.8) th/mm3 Nicholas # (Auto) (0.0-0.9) th/mm3 Eos # (Auto) (0.0-0.4) th/mm3 Baso # (Auto) (0.0-0.2) th/mm3 WBC Differential Differential Comment Puncture Site Patient Temperature O2 Saturation (90-100) % ABG pH (7.380-7.420) ABG pCO2 (38-42) mmHg ABG pO2 (61-120) mmHg ABG HCO3 (22-26) mmol/L ABG O2 Content (12.0-20.0) Vol % ABG Base Excess (-2-2) mmol/L ABG Methemoglobin (0-2) % Mal Test Hemoglobin (12.0-16.0) G/DL Carboxyhemoglobin (0-4) % O2 Delivery Device Liter Flow L/M Critical Value Sodium (136-145) meq/L Potassium (3.5-5.1) meq/L Chloride (98-107) meq/L Carbon Dioxide (21.0-32.0) meq/L Anion Gap (5-15) meq/L BUN (7-18) mg/dL Creatinine (0.50-1.00) mg/dL Estimated GFR (>89) mL/min Random Glucose (74-106) mg/dL Calcium (8.5-10.1) mg/dL Magnesium (1.5-2.5) mg/dL Total Bilirubin (0.2-1.0) mg/dL AST (15-37) U/L ALT (10-53) U/L Alkaline Phosphatase (45-117) U/L Total Creatine Kinase (26-192) U/L Troponin I (0.02-0.05) ng/mL B-Natriuretic Peptide 54 (0-100) pg/mL Total Protein (6.4-8.2) g/dL Albumin (3.4-5.0) g/dL Imaging Data Radiologist's impression: Chest X-Ray 12/14/18 16:03 CONCLUSION: Bilateral interstitial opacities possibly relating to mild pulmonary edema. ECG Data EKG Prior to Arrival: No Attestation: I personally reviewed and interpreted this ECG as follows: Interpretation: EKG reveals anus rhythm with a rate of 95. Nonspecific ST and T wave changes. Inverted T waves noted in lead V4, V5, V6, I, and aVL. Q waves noted in lead III. Discharge Plan Discharge Disposition Patient Disposition: ED Admit(ED Internal Use Only) Discharge Condition Condition: Stable Discharge Order Discharge Orders: ED Use Only Admit Order (Routine); Ordered 12/14/18 Ordered By: Xander Reyes Discharge Details Diagnosis: Influenza A, Sepsis, Pneumonia, Hypoxia Physicians Team ED Provider: Xander Reyes Primary Care Provider: Callum Cassidy Attending Provider: Yue Rabago Discharge Interventions Interventions: Vital Signs Last Done: 12/14/18 16:07 Status ED Status: Admitted Patient
[2018-12-14 16:24] LABS: ABG PCO2 50 mmHg (38-42); ABG PO2 212 mmHg (61-120)
--- NOTE | 2018-12-14 16:28 | XR ---
EXAM DATE: 12/14/2018 4:20 PM EST AGE/SEX: 58 years / Female INDICATIONS: Short of breath CLINICAL DATA: This is the patient's initial encounter. Patient reports that signs and symptoms have been present for 1 day and indicates a pain score of Nonresponsive. MEDICAL/SURGICAL HISTORY: . Chronic obstructive pulmonary disease. Hypertension None. COMPARISON: [facility] [place] & [place], 01/14/2018. . FINDINGS: A single AP view of the chest demonstrates bilateral interstitial infiltrates. Most pronounced within the inferior right hilar region. No effusions observed. Heart is normal in size. Bony structures are unremarkable. CONCLUSION: Bilateral interstitial opacities possibly relating to mild pulmonary edema. Electronically signed by: Dennis Jackson MD Board Certified Radiologist 12/14/2018 4:27 PM EST
[2018-12-14 16:32] LABS: Baso % (Auto) 0.4 % (0.0-2.0); Hematocrit 39.1 % (35.0-46.0); Hemoglobin 13.2 gm/dL (11.6-15.3); Lymph # (Auto) 0.3 th/mm3 (1.0-4.8); Lymph % (Auto) 3.7 % (9.0-44.0); Mean Corpuscular HGB Conc 33.8 % (32.0-36.0); Mean Corpuscular Hemoglobin 30.6 pg (27.0-34.0); Mean Corpuscular Volume 90.5 fL (80.0-100.0); Mean Platelet Volume 8.6 fL (7.0-11.0); Mono # (Auto) 0.6 th/mm3 (0.0-0.9); Mono % (Auto) 7.1 % (0.0-8.0); Neut # (Auto) 7.6 th/mm3 (1.8-7.7); Neut % (Auto) 88.8 % (16.0-70.0); Platelet Count 254 th/mm3 (150-450); Red Blood Count 4.32 mil/mm3 (4.00-5.30); White Blood Count 8.6 th/mm3 (4.0-11.0)
[2018-12-14] MEDS ORDERED: Oseltamivir Phosphate 75 MG Capsule PO ONE (16:46)
[2018-12-14 17:12] LABS: Alanine Aminotransferase 17 U/L (10-53); Albumin 3.4 g/dL (3.4-5.0); Alkaline Phosphatase 94 U/L (45-117); Anion Gap 8 meq/L (5-15); Aspartate Aminotransferase 16 U/L (15-37); Blood Urea Nitrogen 12 mg/dL (7-18); Calcium 9.4 mg/dL (8.5-10.1); Carbon Dioxide 34.2 meq/L (21.0-32.0); Chloride 96 meq/L (98-107); Glomerular Filtration Rate 67 mL/min (>89); Glucose,Random 164 mg/dL (74-106); Magnesium 2.2 mg/dL (1.5-2.5); Sodium 138 meq/L (136-145)
[2018-12-14 17:14] LABS: Creatine Kinase 21 U/L (26-192)
[2018-12-14 17:16] LABS: Potassium 2.8 meq/L (3.5-5.1)
[2018-12-14] MEDS ORDERED: Azithromycin Inj 500 MG in Sodium Chlor 0.9% Inj 250 ML IV.SIG ONE (17:27)
[2018-12-14] MEDS ORDERED: LORazepam 1 MG Tablet PO PRN (18:06)
[2018-12-14] MEDS ORDERED: Acetaminophen 325 MG Tablet PO PRN (18:17)
--- NOTE | 2018-12-14 18:28 | P.HPIM ---
History of Present Illness Primary Care Physician: Callum Cassidy MD History of Present Illness: This patient is a 58 y/o female with a dx of copd on 3 L of supplemental oxygen and follows up with Dr. Wu for her COPD. She has an extensive hx of tobacco smoking. Patient presents to the ED today with complaints of sob that has been worsening over the past few days. She also had fevers since yesterday and a cough productive of yellow sputum. She denies any chest pain. She is fatigued and her symptoms were getting worse so she came in the ER for evaluation. She denies any n/v, no diarrhea. No other complaints. Fam hx noncontributory. Review of Systems Review of Systems: all other systems reviewed are negative [facility] Medical History Medical History A-fib (Acute) CHF (congestive heart failure) (Acute) COPD (chronic obstructive pulmonary disease) (Acute) Diabetes (Acute) Interstitial lung disease (Acute) Social History Social History Substance History: No History of Abuse Smoking Status: Former smoker How Often Do You Have a Drink Containing Alcohol: Never Recent Travel in [facility] within the Last 8 Weeks: No Recent Out of Country Travel within the Last 8 Weeks: No Immunization History Tetanus Immunization: Unsure Medications and Allergies Allergies Allergy/AdvReac Type Severity Reaction Status Date / Time latex Allergy Severe RASH Verified 12/14/18 18:20 Sulfa (Sulfonamide Allergy Severe UNKNOWN Verified 12/14/18 18:20 Antibiotics) Home Medications Medication Instructions Recorded Confirmed Type albuterol sulfate [Ventolin HFA] 2 puff INHALATION Q4-6H PRN 12/14/18 12/14/18 History aspirin 81 mg PO DAILY 12/14/18 12/14/18 History diltiazem HCl 120 mg PO DAILY 12/14/18 12/14/18 History fluoxetine 20 mg PO DAILY 12/14/18 12/14/18 History fluticasone-salmeterol [Advair 1 inh INHALATION BID 12/14/18 12/14/18 History Diskus] furosemide 40 mg PO BID 12/14/18 12/14/18 History levothyroxine 150 mcg PO DAILY 12/14/18 12/14/18 History lorazepam 2 mg PO DAILY 12/14/18 12/14/18 History mirtazapine 30 mg PO DAILY 12/14/18 12/14/18 History omeprazole 40 mg PO DAILY 12/14/18 12/14/18 History potassium chloride 10 meq PO DAILY 12/14/18 12/14/18 History Active Medications: Active Medications Albuterol (Duoneb Neb (Miki)) 1 ampul NEB Q4HR NEB MIKI Aspirin (Aspirin Chew) 81 mg PO DAILY MIKI Diltiazem HCl (Cardizem Cd 24hr) 120 mg PO DAILY MIKI Fluoxetine HCl (Prozac) 20 mg PO DAILY MIKI Azithromycin 500 mg/ Sodium (Chloride) 250 mls @ 250 mls/hr IV.SIG ONCE ONE Stop: 12/14/18 18:26 Potassium Chloride (Kcl 20 Meq Premix Inj) 20 meq in 100 mls @ 50 mls/hr IV.SIG Q2H MIKI Stop: 12/14/18 21:44 Azithromycin 250 mg/ Sodium (Chloride) 250 mls @ 250 mls/hr IV.SIG Q24H MIKI Ceftriaxone Sodium 1,000 mg/ (Sodium Chloride) 100 mls @ 200 mls/hr IV.SIG Q24H MIKI Levothyroxine Sodium (Synthroid) 150 mcg PO DAILY@0600 MIKI Lorazepam (Ativan) 1 mg PO Q6H PRN PRN Reason: ANXIETY Methylprednisolone Sodium Succinate (Solumedrol Inj) 80 mg IV.PUSH Q8HR MIKI Mirtazapine (Remeron) 30 mg PO HS MIKI Oseltamivir Phosphate (Tamiflu) 75 mg PO DAILY MIKI Pantoprazole Sodium (Protonix) 40 mg PO DAILY MIKI Potassium Chloride (Klor-Con 10) 60 meq PO ONCE ONE Stop: 12/14/18 18:13 Physical Exam Vital signs: Vital Signs 12/14/18 15:57 12/14/18 16:07 12/14/18 16:10 Temperature 100.6 F H Pulse Rate 99 H Respiratory Rate 41 H Blood Pressure 176/81 H Pulse Oximetry 60 L 99 99 12/14/18 16:15 12/14/18 16:26 Temperature Pulse Rate 98 H Respiratory Rate 28 H Blood Pressure Pulse Oximetry 97 Intake & Output 12/13/18 12/14/18 12/14/18 18:59 06:59 18:59 Weight 111.13 kg Narrative: Alert and awake S1S2 tachycardic B/L wheezing on auscultation abd soft, normal bowel sounds no edema of exts no focal neuro deficits. Results Labs CBC & Chem 7: 12/14/18 16:10 12/14/18 16:10 Imaging Impressions Chest X-Ray 12/14/18 16:03 CONCLUSION: Bilateral interstitial opacities possibly relating to mild pulmonary edema. Caprini VTE Risk Assessment Caprini VTE Risk Assessment: Moderate/High Risk (score >= 2) Caprini Risk Assessment Model: Point Value = 1 Point Value = 2 Point Value = 3 Point Value = 5 Age 41-60 Minor surgery BMI > 25 kg/m2 Swollen legs Varicose veins or History of unexplained or recurrent spontaneous Oral contraceptives or hormone replacement Sepsis (< 1 month) Serious lung disease, including pneumonia (< 1 month) Abnormal pulmonary function Acute myocardial infarction Congestive heart failure (< 1 month) History of inflammatory bowel disease Medical patient at bed rest Age 61-74 Arthroscopic surgery Major open surgery (> 45 min) Laparoscopic surgery (> 45 min) Malignancy Confined to bed (> 72 hours) Immobilizing plaster cast Central venous access Age >= 75 History of VTE Family history of VTE Factor V Leiden Prothrombin [id number] Lupus anticoagulant Anticardiolipin antibodies Elevated serum homocysteine Heparin-induced thrombocytopenia Other congenital or acquired thrombophilia Stroke (< 1 month) Elective arthroplasty Hip, pelvis, or leg fracture Acute spinal cord injury (< 1 month) Prophylaxis Regimen: Total Risk Factor Score Risk Level Prophylaxis Regimen 0-1 Low Early ambulation 2 Moderate Order ONE of the following: *Sequential Compression Device (SCD) *Heparin 5000 units SQ BID 3-4 Higher Order ONE of the following medications: *Heparin 5000 units SQ TID *Enoxaparin/Lovenox 40 mg SQ daily (WT < 150 kg, CrCl > 30 mL/min) *Enoxaparin/Lovenox 30 mg SQ daily (WT < 150 kg, CrCl > 10-29 mL/min) *Enoxaparin/Lovenox 30 mg SQ BID (WT < 150 kg, CrCl > 30 mL/min) AND/OR *Sequential Compression Device (SCD) 5 or more Highest Order ONE of the following medications: *Heparin 5000 units SQ TID (Preferred with Epidurals) *Enoxaparin/Lovenox 40 mg SQ daily (WT < 150 kg, CrCl > 30 mL/min) *Enoxaparin/Lovenox 30 mg SQ daily (WT < 150 kg, CrCl > 10-29 mL/min) *Enoxaparin/Lovenox 30 mg SQ BID (WT < 150 kg, CrCl > 30 mL/min) AND *Sequential Compression Device (SCD) Assessment and Plan Plan This patient is a 58 y/o female with a dx of copd on 3 L of supplemental oxygen and follows up with Dr. Wu for her COPD. She has an extensive hx of tobacco smoking. Patient presents to the ED today with complaints of sob that has been worsening over the past few days. She also had fevers since yesterday and a cough productive of yellow sputum. She denies any chest pain. 1. Acute hypoxic hypercapnic resp failure 2/2 copd exac with influenza and possibly capna 2. Sepsis 2/2 # 1 Patient hypoxic requiring initially 8 L of supplemental oxygen, currently on 5- 6 L Febrile Wheezing on physical exam b/l, pt with cough with yellow sputum CXR shows b/l infiltrates, bnp normal Flu positive Started on iv steroids, breathing txs, iv antibiotics, and tamiflu place in isolation for flu Place in ICU for today, patient looks more comfortable but is tachypneic Keep oxygen sats above 92% Cautious with IVF, cont LR at [address] up [address] Wu, he was consulted. We will follow up with their recs. Blood cxs pending. 2. HTN Continue home meds Norvasc added to home meds. 3. Hypothyroidism Continue synthroid Lovenox for DVT prophylaxis
[2018-12-14] MEDS: Potassium Chlor 20 mEq Premix 20 MEQ/100 ML PIGGYBACK IV.SIG SCH ×2 (18:30→22:20)
[2018-12-14] MEDS: Mirtazapine 15 MG Tablet PO SCH (20:23)
[2018-12-14] MEDS: dilTIAZem CD 120 MG Capsule PO SCH (20:23)
[2018-12-14] MEDS: FLUoxetine 20 MG Capsule PO SCH (20:23)
[2018-12-14] MEDS: amLODIPine 5 MG Tablet PO SCH (20:23)
[2018-12-14 21:32] LABS: ABG Base Excess 7.6 mmol/L (-2-2); ABG PCO2 54 mmHg (38-42); ABG PO2 170 mmHG (61-120)
[2018-12-14] MEDS: MethylPREDNISolone Sod Succinate Inj 40 MG/ML Vial IV.PUSH SCH (23:27)
[2018-12-15] MEDS ORDERED: Chlorhexidine Gluconate 2% 1 Pack (2 Cloths) TOPICAL PRN (04:00)
[2018-12-15] MEDS: Chlorhexidine Gluconate 2% 1 Pack (2 Cloths) TOPICAL SCH (04:32)
[2018-12-15] MEDS: Levothyroxine 150 MCG Tablet PO SCH (05:55)
[2018-12-15] MEDS: Oseltamivir Phosphate 75 MG Capsule PO SCH (08:12)
[2018-12-15] MEDS: FLUoxetine 20 MG Capsule PO SCH (08:12)
[2018-12-15] MEDS: amLODIPine 5 MG Tablet PO SCH (08:12)
[2018-12-15] MEDS: Enoxaparin Inj 40 MG/0.4 ML Syringe SQ SCH (08:13)
[2018-12-15] MEDS: MethylPREDNISolone Sod Succinate Inj 40 MG/ML Vial IV.PUSH SCH ×3 (08:13→23:16)
[2018-12-15] MEDS: dilTIAZem CD 120 MG Capsule PO SCH (08:13)
[2018-12-15 09:29] LABS: Baso % (Auto) 0.1 % (0.0-2.0); Hematocrit 37.4 % (35.0-46.0); Hemoglobin 12.8 gm/dL (11.6-15.3); Lymph # (Auto) 0.5 th/mm3 (1.0-4.8); Lymph % (Auto) 6.7 % (9.0-44.0); Mean Corpuscular HGB Conc 34.3 % (32.0-36.0); Mean Corpuscular Hemoglobin 31.3 pg (27.0-34.0); Mean Corpuscular Volume 91.4 fL (80.0-100.0); Mean Platelet Volume 8.4 fL (7.0-11.0); Mono # (Auto) 0.5 th/mm3 (0.0-0.9); Mono % (Auto) 7.8 % (0.0-8.0); Neut # (Auto) 5.8 th/mm3 (1.8-7.7); Neut % (Auto) 85.4 % (16.0-70.0); Platelet Count 244 th/mm3 (150-450); Red Cell Distribution Width 14.4 % (11.6-17.2); White Blood Count 6.8 th/mm3 (4.0-11.0)
[2018-12-15 10:00] LABS: Anion Gap 4 meq/L (5-15); Blood Urea Nitrogen 14 mg/dL (7-18); Calcium 9.3 mg/dL (8.5-10.1); Carbon Dioxide 32.6 meq/L (21.0-32.0); Chloride 102 meq/L (98-107); Glomerular Filtration Rate Greater Than 89 mL/min (>89); Glucose,Random 194 mg/dL (74-106); Magnesium 2.6 mg/dL (1.5-2.5); Potassium 3.4 meq/L (3.5-5.1); Sodium 139 meq/L (136-145)
--- NOTE | 2018-12-15 10:37 | P.PNIM ---
Subjective Interval history: Reports that breathing is somewhat better during hospitalization. Unfortunately this morning she experienced an episode of redness all over after ceftriaxone infusion. Physical Exam Vital signs: Vital Signs 12/14/18 15:57 12/14/18 16:07 12/14/18 16:10 Temperature 100.6 F H Pulse Rate 99 H Respiratory Rate 41 H Blood Pressure 176/81 H Pulse Oximetry 60 L 99 99 12/14/18 16:15 12/14/18 16:26 12/14/18 20:00 Temperature Pulse Rate 98 H Respiratory Rate 28 H Blood Pressure Pulse Oximetry 97 94 L 12/14/18 20:59 12/14/18 21:00 12/14/18 21:02 Temperature Pulse Rate 97 H Respiratory Rate 41 H Blood Pressure 161/76 H Pulse Oximetry 78 L 76 L 79 L 12/14/18 22:00 12/14/18 22:03 12/14/18 22:38 Temperature Pulse Rate 82 83 77 Respiratory Rate 54 H 62 H 34 H Blood Pressure 144/110 H 149/69 H Pulse Oximetry 93 L 92 L 12/14/18 22:46 12/14/18 23:00 12/15/18 00:00 Temperature Pulse Rate 75 74 Respiratory Rate 53 H 27 H Blood Pressure 135/65 147/68 H Pulse Oximetry 94 L 92 L 93 L 12/15/18 00:15 12/15/18 01:00 12/15/18 02:00 Temperature Pulse Rate 69 63 Respiratory Rate 21 19 Blood Pressure 143/67 H Pulse Oximetry 94 L 92 L 90 L 12/15/18 02:01 12/15/18 03:00 12/15/18 04:00 Temperature Pulse Rate 62 59 L 56 L Respiratory Rate 19 18 19 Blood Pressure 136/66 135/68 130/71 Pulse Oximetry 93 L 91 L 90 L 12/15/18 04:04 12/15/18 04:08 12/15/18 04:30 Temperature Pulse Rate 59 L Respiratory Rate 10 L 12 Blood Pressure Pulse Oximetry 98 12/15/18 05:00 12/15/18 06:00 12/15/18 06:11 Temperature Pulse Rate 57 L 61 55 L Respiratory Rate 18 26 H Blood Pressure 135/68 143/72 H Pulse Oximetry 89 L 91 L 12/15/18 08:01 12/15/18 09:17 Temperature Pulse Rate 67 110 H Respiratory Rate 20 22 Blood Pressure Pulse Oximetry 92 L Intake & Output 12/14/18 12/15/18 12/15/18 18:59 06:59 18:59 Intake Total 100 / 100 1450 / 1450 Balance 100 / 100 1450 / 1450 Weight 111.13 kg 111 kg Intake: IV 100 / 100 1450 / 1450 LR 1000 mL Inj 1,000 ML @ 100 1000 / 1000 mls/hr IV.CONT .Q10H FATUMA Rx#: [id number] Maxipime Inj 2,000 MG In NS Inj 100 / 100 100 ML @ 200 mls/hr IV.SIG ONCE ONE Rx#:[id number] KCl 20 mEq Premix Inj 20 meq In 200 / 200 100 ml @ 50 mls/hr IV.SIG Q2H FATUMA Rx#:[id number] Oral 0 / 0 Other: # Voids 1 # Bowel Movements 0 Weight On Admission 111.2 kg Narrative: GENERAL: Patient sitting up in bed. Appears comfortable. SKIN: Warm and dry. HEAD: Normocephalic. EYES: No scleral icterus. No injection or drainage. NECK: Supple, trachea midline. No JVD. CARDIOVASCULAR: Regular rate and rhythm without murmurs, gallops, or rubs. RESPIRATORY: Breath sounds equal bilaterally. No accessory muscle use. GASTROINTESTINAL: Abdomen soft, non-tender, nondistended. MUSCULOSKELETAL: No cyanosis, or edema. BACK: Nontender without obvious deformity. No CVA tenderness. Results - Labs CBC & Chem 7: 12/15/18 09:11 12/15/18 09:11 Laboratory Results - last 24 hr 12/14/18 12/14/18 12/14/18 14:10 16:10 16:10 WBC 8.6 RBC 4.32 Hgb 13.2 Hct 39.1 MCV 90.5 MCH 30.6 MCHC 33.8 RDW 14.0 Plt Count 254 MPV 8.6 Neut % (Auto) 88.8 H Lymph % (Auto) 3.7 L [place] % (Auto) 7.1 Eos % (Auto) 0.0 Baso % (Auto) 0.4 Neut # (Auto) 7.6 Lymph # (Auto) 0.3 L [place] # (Auto) 0.6 Eos # (Auto) 0.0 Baso # (Auto) 0.0 WBC Differential . Differential Comment Auto diff final Puncture Site Left radial Patient Temperature 98.6 O2 Saturation 98 ABG pH 7.43 H ABG pCO2 50 H ABG pO2 212 H ABG HCO3 33 H ABG O2 Content 17.9 ABG Base Excess 8.0 H ABG Methemoglobin 0.7 Mal Test Present Hemoglobin 12.7 Carboxyhemoglobin 1.3 O2 Delivery Device Nrb Liter Flow 15.00 Inspired O2 Critical Value No Sodium 138 Potassium 2.8 L* Chloride 96 L Carbon Dioxide 34.2 H Anion Gap 8 BUN 12 Creatinine 0.86 Estimated GFR 67 L Random Glucose 164 H Calcium 9.4 Magnesium 2.2 Total Bilirubin 0.3 AST 16 ALT 17 Alkaline Phosphatase 94 Total Creatine Kinase 21 L Troponin I Less than 0.02 L B-Natriuretic Peptide Total Protein 9.0 H Albumin 3.4 Nasal Screen MRSA (PCR) 12/14/18 12/14/18 12/14/18 16:10 21:10 21:19 WBC RBC Hgb Hct MCV MCH MCHC RDW Plt Count MPV Neut % (Auto) Lymph % (Auto) [place] % (Auto) Eos % (Auto) Baso % (Auto) Neut # (Auto) Lymph # (Auto) [place] # (Auto) Eos # (Auto) Baso # (Auto) WBC Differential Differential Comment Puncture Site Right radial Patient Temperature 98.6 O2 Saturation 96 ABG pH 7.40 ABG pCO2 54 H* ABG pO2 170 H ABG HCO3 33 H ABG O2 Content 17.4 ABG Base Excess 7.6 H ABG Methemoglobin 1.7 Mal Test Present Hemoglobin 12.6 Carboxyhemoglobin 1.0 O2 Delivery Device Bipap ipap12/[id number] Liter Flow Inspired O2 55 Critical Value Yes Sodium Potassium Chloride Carbon Dioxide Anion Gap BUN Creatinine Estimated GFR Random Glucose Calcium Magnesium Total Bilirubin AST ALT Alkaline Phosphatase Total Creatine Kinase Troponin I B-Natriuretic Peptide 54 Total Protein Albumin Nasal Screen MRSA (PCR) Not detected 12/15/18 12/15/18 09:11 09:11 WBC 6.8 RBC 4.10 Hgb 12.8 Hct 37.4 MCV 91.4 MCH 31.3 MCHC 34.3 RDW 14.4 Plt Count 244 MPV 8.4 Neut % (Auto) 85.4 H Lymph % (Auto) 6.7 L [place] % (Auto) 7.8 Eos % (Auto) 0.0 Baso % (Auto) 0.1 Neut # (Auto) 5.8 Lymph # (Auto) 0.5 L [place] # (Auto) 0.5 Eos # (Auto) 0.0 Baso # (Auto) 0.0 WBC Differential . Differential Comment Auto diff final Puncture Site Patient Temperature O2 Saturation ABG pH ABG pCO2 ABG pO2 ABG HCO3 ABG O2 Content ABG Base Excess ABG Methemoglobin Mal Test Hemoglobin Carboxyhemoglobin O2 Delivery Device Liter Flow Inspired O2 Critical Value Sodium 139 Potassium 3.4 L Chloride 102 Carbon Dioxide 32.6 H Anion Gap 4 L BUN 14 Creatinine 0.60 Estimated GFR Greater than 89 Random Glucose 194 H Calcium 9.3 Magnesium 2.6 H Total Bilirubin AST ALT Alkaline Phosphatase Total Creatine Kinase Troponin I B-Natriuretic Peptide Total Protein Albumin Nasal Screen MRSA (PCR) Microbiology 12/14/18 16:10 Nasal Wash Influenza Types A,B Antigen - Final Positive for Flu A Antigen - Imaging Impressions Chest X-Ray 12/14/18 16:03 CONCLUSION: Bilateral interstitial opacities possibly relating to mild pulmonary edema. Assessment and Plan - Plan This patient is a 58 y/o female with a dx of copd on 3 L of supplemental oxygen and follows up with Dr. Wu for her COPD. She has an extensive hx of tobacco smoking. Patient presents to the ED today with complaints of sob that has been worsening over the past few days. She also had fevers since yesterday and a cough productive of yellow sputum. She denies any chest pain. //Acute hypoxic hypercapnic resp failure 2/2 copd exac with influenza and possibly capna //Sepsis 2/2 # 1 Patient hypoxic requiring initially 8 L of supplemental oxygen, currently on 5- 6 L Febrile Wheezing on physical exam b/l, pt with cough with yellow sputum CXR shows b/l infiltrates, bnp normal Flu positive Started on iv steroids, breathing txs, iv antibiotics, and tamiflu place in isolation for flu Place in ICU for today, patient looks more comfortable but is tachypneic Keep oxygen sats above 92% Cautious with IVF, cont LR at [address] follows up [address] Wu, he was consulted. We will follow up with their recs. Blood cxs pending. = Slow improvement. Continue supportive care for influenza A pneumonia. //Suspected anaphylactic reaction to ceftriaxone. Benadryl IV given. Discussed with nursing who will place ceftriaxone on allergy list. //HTN Continue home meds Norvasc added to home meds. //Hypothyroidism Continue synthroid Lovenox for DVT prophylaxis Discussed Condition With: Patient, nurse Discharge Planning: Pending improvement.
[2018-12-15] MEDS: Azithromycin Inj 250 MG in Sodium Chlor 0.9% Inj 250 ML IV.SIG SCH (11:15)
--- NOTE | 2018-12-15 13:30 | MB ---
cc: Bladimir Hu MD DATE: 12/15/2018 PULMONARY CONSULTATION HISTORY OF PRESENT ILLNESS: Ms. Kuhn is a 58-year-old white female with a known history of oxygen-dependent COPD. I actually saw her in consultation in April 2017 with an acute exacerbation. She is normally followed by Dr. Nicholas. Over the course of the last few months, she has had several acute exacerbations. She has been treated as an outpatient in [facility], but this time, she was not getting better, so she came into the hospital. On presentation, she was hypoxic and febrile to 101. Chest x-ray not significantly changed from previous with some bilateral interstitial opacities, no gerald consolidation. White blood cell count was 8600 and flu was positive for A and she was placed on Tamiflu. After about 24 hours, she is feeling better on aerosolized bronchodilators and steroids. She had a red rash develop shortly after infusion of her cephalosporin, so that has been discontinued. Currently on the Tamiflu and Zithromax along with her aerosolized bronchodilators and steroids. She has had no purulent sputum. No chest pain or hemoptysis. PAST MEDICAL HISTORY: Hypothyroidism, prior cholecystectomy, previous surgery on her wrist, right knee surgery for repair, bipolar disorder and schizophrenia. Questionable history of heart failure, although she said that has not been a problem recently and there is no history of significant ischemic heart disease. Questionable history of atrial fibrillation, currently in sinus rhythm. SOCIAL HISTORY: Former smoker, but quit smoking over 20 years ago. Denies any type of alcohol or illicit drug use. ALLERGIES: SULFA, LATEX AND NOW PROBABLY CEPHALOSPORINS WELL. REVIEW OF SYSTEMS: No chest pain. No hemoptysis; not aware of any fever. Cough with congestion, but clear phlegm. No increased edema. No orthopnea or PND. No nausea, vomiting or recent change in bowel habits. PHYSICAL EXAMINATION: VITAL SIGNS/GENERAL: Currently afebrile, comfortable sitting at rest. Respirations 18-22, O2 saturation 93% on 4 liters, pulse is 70. HEENT: Sclerae anicteric. Mucous membranes are moist. NECK: Neck veins are not distended. Minimal rales with slight congestion. No audible wheezing. CARDIAC: Regular heart rhythm. ABDOMEN: Obese, abdomen is soft. EXTREMITIES: No peripheral edema, no calf tenderness or cyanosis. LABORATORY DATA: Blood gas yesterday on BiPAP: pO2 was 107 with a pH of 7.4, pCO2 of 54. ASSESSMENT AND PLAN: Ms. Kuhn presents with an acute exacerbation of chronic obstructive pulmonary disease, influenza A positive without significant changes on her chest x-ray to suggest pneumonia or heart failure. She is much more comfortable today on nasal cannula, responding well to her current therapy. I have made no changes in current orders and further diagnostic and/or therapeutic intervention will depend on her ongoing clinical course. I should also mention the patient is normally seen by Dr. Nicholas and will resume followup with him post-discharge. R. MD HAYLEY Vang/fam , 12:31 PM , 12:41 PM
--- NOTE | 2018-12-15 14:15 | ECG ---
Date Performed: 12/14/2018 Time Performed: 16:03:01 PTAGE: 58 years EKG: Sinus rhythm NONSPECIFIC ST & T-WAVE ABNORMALITY BORDERLINE ECG Since the PREVIOUS TRACING , no significant change noted PREVIOUS TRACING DOCTOR: Tan Ambrocio Interpretating Date/Time 12/15/2018 14:11:06
[2018-12-15] MEDS: Mirtazapine 15 MG Tablet PO SCH (20:02)
[2018-12-16] MEDS: Chlorhexidine Gluconate 2% 1 Pack (2 Cloths) TOPICAL SCH (03:36)
[2018-12-16] MEDS: Levothyroxine 150 MCG Tablet PO SCH (05:25)
[2018-12-16] MEDS: dilTIAZem CD 120 MG Capsule PO SCH (08:41)
[2018-12-16] MEDS: Azithromycin Inj 250 MG in Sodium Chlor 0.9% Inj 250 ML IV.SIG SCH (08:41)
[2018-12-16] MEDS: Oseltamivir Phosphate 75 MG Capsule PO SCH (08:41)
[2018-12-16] MEDS: FLUoxetine 20 MG Capsule PO SCH (08:41)
[2018-12-16] MEDS: Enoxaparin Inj 40 MG/0.4 ML Syringe SQ SCH (08:42)
[2018-12-16] MEDS: MethylPREDNISolone Sod Succinate Inj 40 MG/ML Vial IV.PUSH SCH ×3 (08:42→23:56)
--- NOTE | 2018-12-16 17:40 | P.PNIM ---
Subjective Interval history: Patient says she is feeling a little better today. Denies any chest pain. Reports shortness of breath improving. Physical Exam Vital signs: Vital Signs 12/15/18 18:00 12/15/18 18:01 12/15/18 20:00 Temperature 97.9 F Pulse Rate 66 74 70 Respiratory Rate 21 30 H Blood Pressure 138/64 152/72 H Pulse Oximetry 95 95 95 12/15/18 20:15 12/15/18 21:32 12/15/18 22:00 Temperature Pulse Rate 71 79 Respiratory Rate 19 Blood Pressure Pulse Oximetry 95 94 L 12/15/18 22:51 12/16/18 00:00 12/16/18 00:25 Temperature 98.5 F Pulse Rate 69 79 Respiratory Rate 25 H 28 H Blood Pressure 145/70 H Pulse Oximetry 97 97 96 12/16/18 02:00 12/16/18 04:00 12/16/18 04:32 Temperature 98.2 F Pulse Rate 68 65 79 Respiratory Rate 20 16 Blood Pressure 140/68 Pulse Oximetry 98 98 12/16/18 06:00 12/16/18 07:00 12/16/18 08:00 Temperature 97.4 F L Pulse Rate 57 L 55 L 57 L Respiratory Rate 14 15 Blood Pressure 136/69 143/66 H Pulse Oximetry 97 98 12/16/18 08:14 12/16/18 08:41 12/16/18 09:00 Temperature Pulse Rate 54 L 81 Respiratory Rate 21 20 Blood Pressure 141/73 H Pulse Oximetry 98 95 92 L 12/16/18 10:00 12/16/18 10:01 12/16/18 11:00 Temperature Pulse Rate 81 85 77 Respiratory Rate 21 18 Blood Pressure 158/78 H 165/77 H Pulse Oximetry 90 L 90 L 94 L 12/16/18 11:53 12/16/18 12:00 12/16/18 13:00 Temperature 97.6 F Pulse Rate 77 67 91 H Respiratory Rate 22 22 30 H Blood Pressure 153/77 H 163/78 H Pulse Oximetry 99 90 L 12/16/18 14:00 12/16/18 15:00 12/16/18 15:39 Temperature Pulse Rate 81 80 68 Respiratory Rate 28 H 32 H 28 H Blood Pressure 157/74 H 178/80 H Pulse Oximetry 92 L 91 L 12/16/18 16:00 Temperature 98.1 F Pulse Rate 102 H Respiratory Rate 25 H Blood Pressure 164/75 H Pulse Oximetry 91 L Intake & Output 12/15/18 12/16/18 12/16/18 18:59 06:59 18:59 Intake Total 1999 / 1999 1358 / 1358 642 / 642 Output Total 1000 / 1000 800 / 800 Balance 1000 / 1000 558 / 558 642 / 642 Weight 113 kg Intake: IV 1250 / 1250 1358 / 1358 642 / 642 LR 1000 mL Inj 1,000 ML @ 100 1000 / 1000 1358 / 1358 642 / 642 mls/hr IV.CONT .Q10H FATUMA Rx#: [id number] Azithromycin Inj 250 MG In NS 250 / 250 Inj 250 ML @ 250 mls/hr IV.SIG Q24H FATUMA Rx#:[id number] Oral 750 / 750 Output: Urine 1000 / 1000 800 / 800 Other: # Incontinent Voids 2 # Bowel Movements 0 Narrative: GENERAL: Patient sitting up in chair at bedside. Appears comfortable. SKIN: Warm and dry. HEAD: Normocephalic. EYES: No scleral icterus. No injection or drainage. NECK: Supple, trachea midline. No JVD. CARDIOVASCULAR: Regular rate and rhythm without murmurs, gallops, or rubs. RESPIRATORY: Breath sounds equal bilaterally. No accessory muscle use. GASTROINTESTINAL: Abdomen soft, non-tender, nondistended. MUSCULOSKELETAL: No cyanosis, or edema. BACK: Nontender without obvious deformity. No CVA tenderness. Results Labs CBC & Chem 7: 12/15/18 09:11 12/15/18 09:11 Labs: Microbiology 12/14/18 17:27 Blood - Peripheral Aerobic Blood Culture - Preliminary No growth in 2 days 12/14/18 17:27 Blood - Peripheral Anaerobic Blood Culture - Preliminary No growth in 2 days 12/14/18 17:27 Blood - Peripheral Aerobic Blood Culture - Preliminary No growth in 2 days 12/14/18 17:27 Blood - Peripheral Anaerobic Blood Culture - Preliminary No growth in 2 days Assessment and Plan Plan This patient is a 58 y/o female with a dx of copd on 3 L of supplemental oxygen and follows up with Dr. Wu for her COPD. She has an extensive hx of tobacco smoking. Patient presents to the ED today with complaints of sob that has been worsening over the past few days. She also had fevers since yesterday and a cough productive of yellow sputum. She denies any chest pain. //Acute hypoxic hypercapnic resp failure 2/2 copd exac with influenza and possibly capna //Sepsis 2/2 # 1 Patient hypoxic requiring initially 8 L of supplemental oxygen, currently on 5- 6 L Febrile Wheezing on physical exam b/l, pt with cough with yellow sputum CXR shows b/l infiltrates, bnp normal Flu positive Started on iv steroids, breathing txs, iv antibiotics, and tamiflu place in isolation for flu Place in ICU for today, patient looks more comfortable but is tachypneic Keep oxygen sats above 92% Cautious with IVF, cont LR at [address] follows up [address] Wu, he was consulted. We will follow up with their recs. Blood cxs pending. = Slow improvement. Continue supportive care for influenza A pneumonia. = Some improvement with up out of bed to chair today. Yesterday, patient and daughter requested Dr. Hu who has seen the patient today. Continue supportive treatment with steroids. Physical therapy consultation pending. Patient will probably need home oxygen evaluation tomorrow. //Suspected anaphylactic reaction to ceftriaxone. Benadryl IV given. Discussed with nursing who will place ceftriaxone on allergy list. -No persistent rash. //HTN Continue home meds Norvasc added to home meds. = Blood pressure acceptable. Continue to monitor //Hypothyroidism Continue synthroid Lovenox for DVT prophylaxis Discharge Planning: Pending improvement. PT consult pending. May need home oxygen evaluation. Progress Note: Quality VTE Deep Vein Thrombosis/Pulmonary Embolism Present on Admission: No
[2018-12-16] MEDS: Mirtazapine 15 MG Tablet PO SCH (20:03)
[2018-12-16] MEDS ORDERED: Sodium Chloride 0.9% 2 ML Flush PRN IV.FLUSH (22:21)
[2018-12-17] MEDS: Chlorhexidine Gluconate 2% 1 Pack (2 Cloths) TOPICAL SCH (04:30)
[2018-12-17] MEDS: Levothyroxine 150 MCG Tablet PO SCH (05:12)
[2018-12-17 06:18] LABS: Baso % (Auto) 0.2 % (0.0-2.0); Hematocrit 38.5 % (35.0-46.0); Hemoglobin 12.7 gm/dL (11.6-15.3); Lymph # (Auto) 0.3 th/mm3 (1.0-4.8); Lymph % (Auto) 3.5 % (9.0-44.0); Mean Corpuscular Hemoglobin 30.7 pg (27.0-34.0); Mean Platelet Volume 8.6 fL (7.0-11.0); Mono # (Auto) 0.3 th/mm3 (0.0-0.9); Mono % (Auto) 2.9 % (0.0-8.0); Neut # (Auto) 8.2 th/mm3 (1.8-7.7); Neut % (Auto) 93.4 % (16.0-70.0); Platelet Count 250 th/mm3 (150-450); Red Blood Count 4.14 mil/mm3 (4.00-5.30); Red Cell Distribution Width 14.4 % (11.6-17.2); White Blood Count 8.8 th/mm3 (4.0-11.0)
[2018-12-17 06:57] LABS: Albumin 2.8 g/dL (3.4-5.0); Anion Gap 5 meq/L (5-15); Blood Urea Nitrogen 21 mg/dL (7-18); Calcium 9.3 mg/dL (8.5-10.1); Carbon Dioxide 36.8 meq/L (21.0-32.0); Chloride 101 meq/L (98-107); Glomerular Filtration Rate Greater Than 89 mL/min (>89); Glucose,Random 213 mg/dL (74-106); Magnesium 2.4 mg/dL (1.5-2.5); Phosphorus 3.6 mg/dL (2.5-4.9); Potassium 4.1 meq/L (3.5-5.1); Sodium 143 meq/L (136-145)
[2018-12-17] MEDS: Oseltamivir Phosphate 75 MG Capsule PO SCH (09:13)
[2018-12-17] MEDS: MethylPREDNISolone Sod Succinate Inj 40 MG/ML Vial IV.PUSH SCH ×3 (09:14→23:57)
[2018-12-17] MEDS: FLUoxetine 20 MG Capsule PO SCH (09:14)
[2018-12-17] MEDS: dilTIAZem CD 120 MG Capsule PO SCH (09:14)
[2018-12-17] MEDS: Sodium Chloride 0.9% 2 ML Flush BID IV.FLUSH SCH ×2 (09:15→20:54)
[2018-12-17] MEDS: Enoxaparin Inj 40 MG/0.4 ML Syringe SQ SCH (09:15)
[2018-12-17] MEDS: Azithromycin Inj 250 MG in Sodium Chlor 0.9% Inj 250 ML IV.SIG SCH (09:21)
--- NOTE | 2018-12-17 11:22 | P.PNIM ---
Subjective Interval history: Patient sleeping, wakes of her exam. Says she is feeling right. Denies any chest pain or shortness of breath today. No acute events per nursing. Physical Exam Vital signs: Vital Signs 12/16/18 11:53 12/16/18 12:00 12/16/18 13:00 Temperature 97.6 F Pulse Rate 77 67 91 H Respiratory Rate 22 22 30 H Blood Pressure 153/77 H 163/78 H Pulse Oximetry 99 90 L 12/16/18 14:00 12/16/18 15:00 12/16/18 15:39 Temperature Pulse Rate 81 80 68 Respiratory Rate 28 H 32 H 28 H Blood Pressure 157/74 H 178/80 H Pulse Oximetry 92 L 91 L 12/16/18 16:00 12/16/18 17:00 12/16/18 18:00 Temperature 98.1 F Pulse Rate 102 H 79 76 Respiratory Rate 25 H 29 H 31 H Blood Pressure 164/75 H 165/76 H 176/79 H Pulse Oximetry 91 L 93 L 91 L 12/16/18 19:00 12/16/18 20:00 12/16/18 20:56 Temperature 98.4 F Pulse Rate 79 73 77 Respiratory Rate 56 H 47 H 24 Blood Pressure 173/78 H 169/78 H Pulse Oximetry 91 L 92 L 92 L 12/16/18 21:00 12/16/18 22:00 12/16/18 23:00 Temperature Pulse Rate 73 86 73 Respiratory Rate 28 H 26 H 38 H Blood Pressure 180/82 H 171/75 H 159/77 H Pulse Oximetry 99 89 L 94 L 12/17/18 00:00 12/17/18 00:12 12/17/18 00:26 Temperature 98.3 F Pulse Rate 91 H 68 Respiratory Rate 35 H 24 Blood Pressure 152/92 H Pulse Oximetry 88 L 94 L 12/17/18 02:00 12/17/18 04:00 12/17/18 04:35 Temperature 97.9 F Pulse Rate 65 56 L Respiratory Rate 30 H Blood Pressure 134/66 Pulse Oximetry 94 L 90 L 12/17/18 04:37 12/17/18 06:00 12/17/18 07:00 Temperature Pulse Rate 66 74 63 Respiratory Rate 24 Blood Pressure Pulse Oximetry 94 L 12/17/18 07:01 12/17/18 08:00 12/17/18 09:00 Temperature 97.5 F L Pulse Rate 63 70 68 Respiratory Rate 25 H 25 H Blood Pressure 146/65 H 135/69 155/69 H Pulse Oximetry 95 96 94 L 12/17/18 09:02 12/17/18 10:00 Temperature Pulse Rate 69 91 H Respiratory Rate 17 24 Blood Pressure 143/65 H Pulse Oximetry 95 92 L Intake & Output 12/16/18 12/17/18 12/17/18 18:59 06:59 18:59 Intake Total 1692 / 1692 1999 / 1999 250 / 250 Output Total 1000 / 1000 950 / 950 Balance 692 / 692 1050 / 1050 250 / 250 Weight 115 kg Intake: IV 892 / 892 1999 250 / 250 LR 1000 mL Inj 1,000 ML @ 100 642 / 642 1999 / 2000 mls/hr IV.CONT .Q10H FATUMA Rx#: [id number] Azithromycin Inj 250 MG In NS 250 / 250 250 / 250 Inj 250 ML @ 250 mls/hr IV.SIG Q24H FATUMA Rx#:[id number] Oral 800 / 800 Output: Urine 1000 / 1000 950 / 950 Other: # Incontinent Voids 1 # Bowel Movements 0 Narrative: GENERAL: Patient lying in bed. Appears comfortable. SKIN: Warm and dry. HEAD: Normocephalic. EYES: No scleral icterus. No injection or drainage. NECK: Supple, trachea midline. No JVD. CARDIOVASCULAR: Regular rate and rhythm without murmurs, gallops, or rubs. RESPIRATORY: Breath sounds equal bilaterally. No accessory muscle use. GASTROINTESTINAL: Abdomen soft, non-tender, nondistended. MUSCULOSKELETAL: No cyanosis, or edema. BACK: Nontender without obvious deformity. No CVA tenderness. Results Labs CBC & Chem 7: 12/17/18 05:59 12/17/18 05:59 Labs: Microbiology 12/14/18 17:27 Blood - Peripheral Aerobic Blood Culture - Preliminary No growth in 3 days 12/14/18 17:27 Blood - Peripheral Anaerobic Blood Culture - Preliminary No growth in 3 days 12/14/18 17:27 Blood - Peripheral Aerobic Blood Culture - Preliminary No growth in 3 days 12/14/18 17:27 Blood - Peripheral Anaerobic Blood Culture - Preliminary No growth in 3 days Assessment and Plan Plan This patient is a 58 y/o female with a dx of copd on 3 L of supplemental oxygen and follows up with Dr. Wu for her COPD. She has an extensive hx of tobacco smoking. Patient presents to the ED today with complaints of sob that has been worsening over the past few days. She also had fevers since yesterday and a cough productive of yellow sputum. She denies any chest pain. //Acute hypoxic hypercapnic resp failure 2/2 copd exac with influenza and possibly capna //Sepsis 2/2 # 1 Patient hypoxic requiring initially 8 L of supplemental oxygen, currently on 5- 6 L Febrile Wheezing on physical exam b/l, pt with cough with yellow sputum CXR shows b/l infiltrates, bnp normal Flu positive Started on iv steroids, breathing txs, iv antibiotics, and tamiflu place in isolation for flu Place in ICU for today, patient looks more comfortable but is tachypneic Keep oxygen sats above 92% Cautious with IVF, cont LR at [address] Pt follows up [address] Wu, he was consulted. We will follow up with their recs. Blood cxs pending. = Slow improvement. Continue supportive care for influenza A pneumonia. = Some improvement with up out of bed to chair today. Yesterday, patient and daughter requested Dr. Hu who has seen the patient today. Continue supportive treatment with steroids. Physical therapy consultation pending. Patient will probably need home oxygen evaluation tomorrow. = Improving. Taper steroids. Pulmonology following. Transfer to floor. Appreciate assistance. //Suspected anaphylactic reaction to ceftriaxone. Benadryl IV given. Discussed with nursing who will place ceftriaxone on allergy list. -No persistent rash. //HTN Continue home meds Norvasc added to home meds. = Blood pressure acceptable. Continue to monitor //Hypothyroidism Continue synthroid Lovenox for DVT prophylaxis Discharge Planning: Pending improvement. PT recommends rehab. May need home oxygen evaluation. Progress Note: Quality VTE Deep Vein Thrombosis/Pulmonary Embolism Present on Admission: No
[2018-12-17] MEDS: Mirtazapine 15 MG Tablet PO SCH (20:53)
[2018-12-18] MEDS: Chlorhexidine Gluconate 2% 1 Pack (2 Cloths) TOPICAL SCH (03:46)
[2018-12-18] MEDS: Levothyroxine 150 MCG Tablet PO SCH (05:46)
[2018-12-18] MEDS: MethylPREDNISolone Sod Succinate Inj 40 MG/ML Vial IV.PUSH SCH ×2 (07:49→15:38)
[2018-12-18] MEDS: Oseltamivir Phosphate 75 MG Capsule PO SCH (08:41)
[2018-12-18] MEDS: dilTIAZem CD 120 MG Capsule PO SCH (08:42)
[2018-12-18] MEDS: FLUoxetine 20 MG Capsule PO SCH (08:42)
[2018-12-18] MEDS: Azithromycin Inj 250 MG in Sodium Chlor 0.9% Inj 250 ML IV.SIG SCH (08:42)
[2018-12-18] MEDS: Enoxaparin Inj 40 MG/0.4 ML Syringe SQ SCH (08:42)
[2018-12-18] MEDS: Sodium Chloride 0.9% 2 ML Flush BID IV.FLUSH SCH ×2 (08:42→21:06)
--- NOTE | 2018-12-18 08:45 | XR ---
EXAM DATE: 12/18/2018 8:40 AM EST AGE/SEX: 58 years / Female INDICATIONS: Pneumonia CLINICAL DATA: This is the patient's subsequent encounter. Patient reports that signs and symptoms h ave been present for 4 - 6 days and indicates a pain score of 0/10. MEDICAL/SURGICAL HISTORY: . Chronic obstructive pulmonary disease. Hypertension None. COMPARISON: [facility] – [place]ST 1V SINGLE AP, 12/14/2018. . FINDINGS: A single AP view of the chest demonstrates change in the appearance of the lung parenchyma relative t o the prior study. Previously interstitial prominence noted. Now there are intra-alveolar opacities w ithin the right hilum and bilateral lung bases but more pronounced on the left. No effusions. The hea rt is at the upper limits of normal in terms of size. CONCLUSION: Bilateral pulmonary infiltrates more suggestive of an infectious etiology. These have progressed from the prior study. Electronically signed by: Dennis Jackson MD Board Certified Radiologist 12/18/2018 8:44 AM EST
[2018-12-18] MEDS ORDERED: Senna/Docusate Sodium 8.6/50 MG Tablet PO ONE (09:58)
--- NOTE | 2018-12-18 12:27 | P.PNIM ---
Subjective Interval history: Says she is feeling right. Denies any chest pain or shortness of breath. She reports no bowel movement 6 days. Physical Exam Vital signs: Vital Signs 12/17/18 13:00 12/17/18 13:57 12/17/18 14:00 Temperature Pulse Rate 75 91 H 91 H Respiratory Rate Blood Pressure 154/68 H 158/111 H Pulse Oximetry 93 L 89 L 12/17/18 15:00 12/17/18 16:00 12/17/18 17:00 Temperature Pulse Rate 77 74 79 Respiratory Rate 16 26 H Blood Pressure 158/71 H 158/76 H 166/74 H Pulse Oximetry 93 L 94 L 93 L 12/17/18 18:00 12/17/18 18:01 12/17/18 18:02 Temperature Pulse Rate 85 104 H 98 H Respiratory Rate 24 24 23 Blood Pressure 172/129 H 168/79 H Pulse Oximetry 94 L 94 L 95 12/17/18 19:00 12/17/18 20:00 12/17/18 21:00 Temperature Pulse Rate 81 80 79 Respiratory Rate 25 H 23 23 Blood Pressure 164/77 H 163/76 H 169/80 H Pulse Oximetry 94 L 94 L 95 12/17/18 21:28 12/17/18 21:29 12/17/18 22:00 Temperature Pulse Rate 68 71 Respiratory Rate 28 H 19 Blood Pressure 166/77 H Pulse Oximetry 93 L 96 12/17/18 23:00 12/18/18 00:00 12/18/18 00:51 Temperature Pulse Rate 77 72 Respiratory Rate 19 20 Blood Pressure 159/72 H 172/78 H Pulse Oximetry 99 96 95 12/18/18 00:53 12/18/18 01:00 12/18/18 01:01 Temperature Pulse Rate 67 63 63 Respiratory Rate 25 H 21 17 Blood Pressure 149/67 H Pulse Oximetry 97 96 12/18/18 02:00 12/18/18 03:00 12/18/18 04:00 Temperature Pulse Rate 64 70 64 Respiratory Rate 17 19 19 Blood Pressure 140/73 157/78 H 158/73 H Pulse Oximetry 96 96 96 12/18/18 05:00 12/18/18 05:03 12/18/18 05:04 Temperature Pulse Rate 63 70 Respiratory Rate 15 18 Blood Pressure 152/72 H Pulse Oximetry 95 97 12/18/18 06:00 12/18/18 07:00 12/18/18 07:01 Temperature Pulse Rate 65 59 L 59 L Respiratory Rate 46 H 35 H 26 H Blood Pressure 175/81 H 144/67 H Pulse Oximetry 93 L 95 95 12/18/18 08:00 12/18/18 08:59 12/18/18 09:00 Temperature 98.1 F Pulse Rate 70 91 H 82 Respiratory Rate 32 H 18 37 H Blood Pressure 156/84 H 167/76 H Pulse Oximetry 94 L 89 L 12/18/18 09:01 12/18/18 12:00 12/18/18 12:01 Temperature 98.4 F Pulse Rate 73 73 Respiratory Rate 16 Blood Pressure Pulse Oximetry 93 L Intake & Output 12/17/18 12/18/18 12/18/18 18:59 06:59 18:59 Intake Total 1250 / 1250 520 / 520 250 / 250 Output Total 1300 / 1300 Balance -50 / -50 520 / 520 250 / 250 Weight 116.1 kg Intake: IV 1250 / 1250 400 / 400 250 / 250 LR 1000 mL Inj 1,000 ML @ 100 1000 / 1000 400 / 400 mls/hr IV.CONT .Q10H [facility] Rx#: [id number] Azithromycin Inj 250 MG In NS 250 / 250 250 / 250 Inj 250 ML @ 250 mls/hr IV.SIG Q24H [facility] Rx#:[id number] Oral 120 / 120 Output: Urine 1300 / 1300 Other: # Voids 2 # Incontinent Voids 1 Narrative: GENERAL: Patient sitting up in chair. Appears comfortable. SKIN: Warm and dry. HEAD: Normocephalic. EYES: No scleral icterus. No injection or drainage. NECK: Supple, trachea midline. No JVD. CARDIOVASCULAR: Regular rate and rhythm without murmurs, gallops, or rubs. RESPIRATORY: Breath sounds equal bilaterally. No accessory muscle use. Slight rales in the bases GASTROINTESTINAL: Abdomen soft, non-tender, nondistended. MUSCULOSKELETAL: No cyanosis, or edema. BACK: Nontender without obvious deformity. No CVA tenderness. Results Labs CBC & Chem 7: 12/17/18 05:59 12/17/18 05:59 Labs: Microbiology 12/14/18 17:27 Blood - Peripheral Aerobic Blood Culture - Preliminary No growth in 4 days 12/14/18 17:27 Blood - Peripheral Anaerobic Blood Culture - Preliminary No growth in 4 days 12/14/18 17:27 Blood - Peripheral Aerobic Blood Culture - Preliminary No growth in 4 days 12/14/18 17:27 Blood - Peripheral Anaerobic Blood Culture - Preliminary No growth in 4 days Imaging Imaging: Impressions Chest X-Ray 12/18/18 00:00 CONCLUSION: Bilateral pulmonary infiltrates more suggestive of an infectious etiology. These have progressed from the prior study. Assessment and Plan Plan This patient is a 58 y/o female with a dx of copd on 3 L of supplemental oxygen and follows up with Dr. Wu for her COPD. She has an extensive hx of tobacco smoking. Patient presents to the ED today with complaints of sob that has been worsening over the past few days. She also had fevers since yesterday and a cough productive of yellow sputum. She denies any chest pain. //Acute hypoxic hypercapnic resp failure 12/06 copd exac with influenza and possibly capna //Sepsis 12/06 # 1 Patient hypoxic requiring initially 8 L of supplemental oxygen, currently on 5- 6 L Febrile Wheezing on physical exam b/l, pt with cough with yellow sputum CXR shows b/l infiltrates, bnp normal Flu positive Started on iv steroids, breathing txs, iv antibiotics, and tamiflu place in isolation for flu Place in ICU for today, patient looks more comfortable but is tachypneic Keep oxygen sats above 92% Cautious with IVF, cont LR at [address] up [address] Wu, he was consulted. We will follow up with their recs. Blood cxs pending. = Slow improvement. Continue supportive care for influenza A pneumonia. = Some improvement with up out of bed to chair today. Yesterday, patient and daughter requested Dr. Hu who has seen the patient today. Continue supportive treatment with steroids. Physical therapy consultation pending. Patient will probably need home oxygen evaluation tomorrow. = Improving. Taper steroids. Pulmonology following. Transfer to floor. Appreciate assistance. = 12/18 symptomatically patient continues with slow improvement. Patient with some rales on exam. Chest x-ray shows infiltrates. BNP ordered. Patient on Lasix at home which has been held here. We will give IV Lasix. Follow-up labs , BNP. //Suspected anaphylactic reaction to ceftriaxone. Benadryl IV given. Discussed with nursing who will place ceftriaxone on allergy list. -No persistent rash. //HTN Continue home meds Norvasc added to home meds. = Blood pressure acceptable. Continue to monitor //Hypothyroidism Continue synthroid //Constipation. No other GI complaint. Laxatives ordered. Lovenox for DVT prophylaxis Discharge Planning: Pending improvement. PT recommends rehab. May need home oxygen evaluation. Progress Note: Quality VTE Deep Vein Thrombosis/Pulmonary Embolism Present on Admission: No
[2018-12-18 17:03] LABS: Calcium 8.8 mg/dL (8.5-10.1); Potassium 3.5 meq/L (3.5-5.1)
[2018-12-18] MEDS: Mirtazapine 15 MG Tablet PO SCH (21:06)
[2018-12-19] MEDS: MethylPREDNISolone Sod Succinate Inj 40 MG/ML Vial IV.PUSH SCH ×3 (00:13→17:38)
[2018-12-19] MEDS: Chlorhexidine Gluconate 2% 1 Pack (2 Cloths) TOPICAL SCH (03:23)
[2018-12-19] MEDS: Levothyroxine 150 MCG Tablet PO SCH (05:43)
[2018-12-19 06:02] LABS: Baso % (Auto) 0.2 % (0.0-2.0); Hematocrit 39.5 % (35.0-46.0); Lymph # (Auto) 0.3 th/mm3 (1.0-4.8); Lymph % (Auto) 4.9 % (9.0-44.0); Mean Corpuscular Hemoglobin 30.1 pg (27.0-34.0); Mean Corpuscular Volume 91.4 fL (80.0-100.0); Mean Platelet Volume 8.8 fL (7.0-11.0); Mono # (Auto) 0.3 th/mm3 (0.0-0.9); Mono % (Auto) 4.4 % (0.0-8.0); Neut # (Auto) 6.1 th/mm3 (1.8-7.7); Neut % (Auto) 90.5 % (16.0-70.0); Platelet Count 195 th/mm3 (150-450); Red Blood Count 4.32 mil/mm3 (4.00-5.30); Red Cell Distribution Width 14.6 % (11.6-17.2); White Blood Count 6.8 th/mm3 (4.0-11.0)
[2018-12-19 06:26] LABS: Albumin 2.8 g/dL (3.4-5.0); Anion Gap 2 meq/L (5-15); Blood Urea Nitrogen 21 mg/dL (7-18); Calcium 8.8 mg/dL (8.5-10.1); Chloride 96 meq/L (98-107); Glomerular Filtration Rate Greater Than 89 mL/min (>89); Glucose,Random 236 mg/dL (74-106); Magnesium 2.8 mg/dL (1.5-2.5); Phosphorus 3.1 mg/dL (2.5-4.9); Sodium 140 meq/L (136-145)
[2018-12-19] MEDS: FLUoxetine 20 MG Capsule PO SCH (09:37)
[2018-12-19] MEDS: Oseltamivir Phosphate 75 MG Capsule PO SCH ×2 (09:37→20:06)
[2018-12-19] MEDS: dilTIAZem CD 120 MG Capsule PO SCH (09:37)
[2018-12-19] MEDS: Enoxaparin Inj 40 MG/0.4 ML Syringe SQ SCH (09:37)
[2018-12-19] MEDS: Azithromycin Inj 250 MG in Sodium Chlor 0.9% Inj 250 ML IV.SIG SCH (10:07)
[2018-12-19] MEDS: Sodium Chloride 0.9% 2 ML Flush BID IV.FLUSH SCH ×2 (10:08→20:06)
--- NOTE | 2018-12-19 13:16 | P.PNIM ---
Subjective Interval history: feeling better, shortness of breath is improving. Legs are swollen, arm swelling has improved. Physical Exam Vital signs: Vital Signs 12/18/18 16:00 12/18/18 16:36 12/18/18 20:00 Temperature 97.6 F 98 F Pulse Rate 81 81 80 Respiratory Rate 20 20 22 Blood Pressure 164/78 H 166/77 H Pulse Oximetry 90 L 94 L 12/18/18 20:45 12/18/18 21:05 12/18/18 23:59 Temperature Pulse Rate 74 73 Respiratory Rate 16 19 Blood Pressure Pulse Oximetry 94 L 12/19/18 00:00 12/19/18 03:02 12/19/18 08:00 Temperature 97.4 F L 97.8 F Pulse Rate 77 73 Respiratory Rate 24 22 Blood Pressure 132/67 172/84 H Pulse Oximetry 90 L 96 97 12/19/18 08:48 12/19/18 11:48 Temperature Pulse Rate 68 75 Respiratory Rate 16 21 Blood Pressure Pulse Oximetry 95 Intake & Output 12/18/18 12/19/18 12/19/18 18:59 06:59 18:59 Intake Total 1690 / 1690 480 / 480 250 / 250 Output Total 500 / 500 Balance 1190 / 1190 480 / 480 250 / 250 Weight 114.4 kg Intake: IV 250 / 250 250 / 250 Azithromycin Inj 250 MG In NS 250 / 250 250 / 250 Inj 250 ML @ 250 mls/hr IV.SIG Q24H [facility] Rx#:[id number] Oral 1440 / 1440 480 / 480 Output: Urine 500 / 500 Other: # Voids 4 3 Date of Last Bowel Movement 12/25/18 # Bowel Movements 2 3 Results Labs CBC & Chem 7: 12/19/18 05:41 12/19/18 05:41 Labs: Microbiology 12/14/18 17:27 Blood - Peripheral Aerobic Blood Culture - Final No growth in 5 days 12/14/18 17:27 Blood - Peripheral Anaerobic Blood Culture - Final No growth in 5 days 12/14/18 17:27 Blood - Peripheral Aerobic Blood Culture - Final No growth in 5 days 12/14/18 17:27 Blood - Peripheral Anaerobic Blood Culture - Final No growth in 5 days Assessment and Plan Plan 58 y/o female with a dx of copd on 3 L of supplemental home oxygen and follows up with Dr. Wu for her COPD. She has an extensive hx of tobacco smoking.Presented with worsening shortness of breath and productive cough, was found to have the flu. Acute problems: 1.Acute hypoxic hypercapnic resp failure secondary to copd exac with influenza. CXR shows b/l infiltrates, bnp normal. Flu positive. clinically improving. still requiring 5l/min oxygen by nc, taper as tolerated to usual home level of 3l/min. Continue Tamiflu increased dose to 75mg bid which is a therapeutic dose. Cont DUONEBS, Methyl Prednisone,Azithromycin, Oxygen by nasal canula. PT/OT rec rehab. appreciate pulmonary recs. 2. Sepsis 2/ # 1--resolved 3.Suspected anaphylactic reaction to ceftriaxone. Benadryl IV given. Discussed with nursing who will place ceftriaxone on allergy list. -No persistent rash. 4. Hyperglycemia--steroid induced, keep on SSI. Constipation. No other GI complaint. on Laxatives Chronic problems: #HTN Continue home meds Norvasc added to home meds. = Blood pressure acceptable. Continue to monitor #Hypothyroidism Continue synthroid Lovenox for DVT prophylaxis Progress Note: Quality VTE Deep Vein Thrombosis/Pulmonary Embolism Present on Admission: No
[2018-12-19] MEDS ORDERED: Dextrose 50% in Water 50 ML Vial IV.PUSH PRN (13:23)
--- NOTE | 2018-12-19 16:09 | P.DCO ---
Physical Therapy Order: Evaluate and treat and Strength and gait training Occupational Therapy Order: Evaluate and treat Home Health Nursing Order: Signs/symptoms of disease process Case Management Consult Case Management Consult-Home Health: Yes I have seen patient Sary Kuhn on 12/19/18. My clinical findings support the need for the requested home health care services because:treatment for influenza with pneumonia, respiratory failure,copd exacerbation. physical debility due to acute illness. I certify that my clinical findings support that this patient is homebound because:
[2018-12-19] MEDS: Insulin NovoLIN Regular Correctional Sugar Inj SQ SCH ×2 (17:39→20:05)
[2018-12-19] MEDS: Mirtazapine 15 MG Tablet PO SCH (20:06)
[2018-12-20] MEDS: MethylPREDNISolone Sod Succinate Inj 40 MG/ML Vial IV.PUSH SCH ×3 (00:35→15:21)
[2018-12-20] MEDS: Levothyroxine 150 MCG Tablet PO SCH (05:40)
[2018-12-20 08:36] LABS: Anion Gap 4 meq/L (5-15); Blood Urea Nitrogen 21 mg/dL (7-18); Calcium 8.9 mg/dL (8.5-10.1); Carbon Dioxide 41.2 meq/L (21.0-32.0); Chloride 94 meq/L (98-107); Glomerular Filtration Rate Greater Than 89 mL/min (>89); Glucose,Random 242 mg/dL (74-106); Sodium 139 meq/L (136-145)
[2018-12-20] MEDS: Enoxaparin Inj 40 MG/0.4 ML Syringe SQ SCH (09:39)
[2018-12-20] MEDS: Insulin NovoLIN Regular Correctional Sugar Inj SQ SCH ×3 (09:39→17:57)
[2018-12-20] MEDS: dilTIAZem CD 120 MG Capsule PO SCH (09:40)
[2018-12-20] MEDS: FLUoxetine 20 MG Capsule PO SCH (09:40)
[2018-12-20] MEDS: Oseltamivir Phosphate 75 MG Capsule PO SCH (09:40)
[2018-12-20] MEDS: Azithromycin Inj 250 MG in Sodium Chlor 0.9% Inj 250 ML IV.SIG SCH (09:41)
[2018-12-20] MEDS: Sodium Chloride 0.9% 2 ML Flush BID IV.FLUSH SCH (09:43)
--- NOTE | 2018-12-20 12:16 | P.PNPL ---
Subjective Interval history: Patient is on 5L oxygen looks comfortable, afebrile. Physical Exam Vital signs: Vital Signs 12/19/18 16:36 12/19/18 20:00 12/19/18 21:04 Temperature 97.7 F Pulse Rate 72 74 78 Respiratory Rate 17 18 16 Blood Pressure 157/86 H Pulse Oximetry 93 L 12/20/18 00:00 12/20/18 01:02 12/20/18 01:03 Temperature 97.6 F Pulse Rate 75 67 Respiratory Rate 18 16 Blood Pressure 167/78 H Pulse Oximetry 94 L 96 12/20/18 03:22 12/20/18 03:46 12/20/18 05:43 Temperature 97.2 F L Pulse Rate 77 77 81 Respiratory Rate 16 18 20 Blood Pressure 160/74 H 150/73 H Pulse Oximetry 93 L 93 L 12/20/18 08:00 12/20/18 08:41 Temperature 97.6 F Pulse Rate 74 79 Respiratory Rate 19 18 Blood Pressure 166/83 H Pulse Oximetry 95 Intake & Output 12/19/18 12/20/18 12/20/18 18:59 06:59 18:59 Intake Total 250 / 250 250 / 250 Balance 250 / 250 250 / 250 Weight 111 kg Intake: IV 250 / 250 250 / 250 Azithromycin Inj 250 MG In NS 250 / 250 250 / 250 Inj 250 ML @ 250 mls/hr IV.SIG Q24H [facility] Rx#:[id number] Other: # Voids 3 Date of Last Bowel Movement 12/19/18 12/19/18 - Constitutional no acute distress, obese - Routine HEENT Exam Head: Present: normocephalic, atraumatic Eye: Present: EOMI, PERRL, normal accommodation, conjunctivae pink ENT: Present: mucous membranes moist - Routine Neck Exam Present: supple, full ROM, trachea midline - Routine Respiratory Exam Present: rhonchi - Routine Cardiovascular Exam Present: RRR, S1, S2 - Routine Abdominal Exam Present: soft, normoactive bowel sounds - Routine Extremities Exam Present: edema, full ROM, pulses intact - Routine Skin Exam Present: intact, dry - Routine Neurological Exam Present: alert, oriented X3, CN II-XII intact Assessment and Plan - Plan 1)Resp Insuff 2)COPD 3) Influenza Pneumonia 4)Obesity 5)ILD 6)DM Plan Wean down oxygen as tona keep sats >92% Bronchodilators Solumederol 40mg IV Q8 BIPAP PRN for resp distress Give Diamox 500mg IV x1 Continue Tamiflu, Azithromycin ,check sputum cx Monitor renal function, diurese as needed GI/DVT prophylaxis Continue treatment plan.
--- NOTE | 2018-12-20 13:34 | P.PNIM ---
Subjective Interval history: breathing continues to improve. no wheezing. Physical Exam Vital signs: Vital Signs 12/19/18 16:36 12/19/18 20:00 12/19/18 21:04 Temperature 97.7 F Pulse Rate 72 74 78 Respiratory Rate 17 18 16 Blood Pressure 157/86 H Pulse Oximetry 93 L 12/20/18 00:00 12/20/18 01:02 12/20/18 01:03 Temperature 97.6 F Pulse Rate 75 67 Respiratory Rate 18 16 Blood Pressure 167/78 H Pulse Oximetry 94 L 96 12/20/18 03:22 12/20/18 03:46 12/20/18 05:43 Temperature 97.2 F L Pulse Rate 77 77 81 Respiratory Rate 16 18 20 Blood Pressure 160/74 H 150/73 H Pulse Oximetry 93 L 93 L 12/20/18 08:00 12/20/18 08:41 12/20/18 12:25 Temperature 97.6 F Pulse Rate 74 79 76 Respiratory Rate 19 18 18 Blood Pressure 166/83 H Pulse Oximetry 95 Intake & Output 12/19/18 12/20/18 12/20/18 18:59 06:59 18:59 Intake Total 250 / 250 250 / 250 Balance 250 / 250 250 / 250 Weight 111 kg Intake: IV 250 / 250 250 / 250 Azithromycin Inj 250 MG In NS 250 / 250 250 / 250 Inj 250 ML @ 250 mls/hr IV.SIG Q24H [facility] Rx#:[id number] Other: # Voids 3 Date of Last Bowel Movement 12/19/18 12/19/18 Narrative: GENERAL: middle aged woman, not in distress. HEENT:not pale,anicteric,nasal canula in situ. CARDIOVASCULAR: Regular rate and rhythm without murmurs, gallops, or rubs. RESPIRATORY: Clear to auscultation. Breath sounds equal bilaterally. No wheezes , rales, or rhonchi. GASTROINTESTINAL: Abdomen soft, non-tender, nondistended. Normal active bowel sounds MUSCULOSKELETAL: Extremities without clubbing, cyanosis, or edema. NEURO: Alert & Oriented x4 to person, place, time, situation. Moves all ext x4 Results Labs CBC & Chem 7: 12/19/18 05:41 12/20/18 06:26 Labs: Microbiology 12/14/18 17:27 Blood - Peripheral Aerobic Blood Culture - Final No growth in 5 days 12/14/18 17:27 Blood - Peripheral Anaerobic Blood Culture - Final No growth in 5 days 12/14/18 17:27 Blood - Peripheral Aerobic Blood Culture - Final No growth in 5 days 12/14/18 17:27 Blood - Peripheral Anaerobic Blood Culture - Final No growth in 5 days Assessment and Plan Plan 58 y/o female with a dx of copd on 3 L of supplemental home oxygen and follows up with Dr. Wu for her COPD. She has an extensive hx of tobacco smoking.Presented with worsening shortness of breath and productive cough, was found to have the flu. Acute problems: 1.Acute hypoxic hypercapnic resp failure secondary to copd exac with influenza. CXR shows b/l infiltrates, bnp normal. Flu positive. clinically improving. still requiring 5l/min oxygen by nc, taper as tolerated to usual home level of 3l/min. Continue Tamiflu,DUONEBS, Methyl Prednisone,Azithromycin, Oxygen by nasal canula. appreciate pulmonary recs. 2. Sepsis 2/2 # 1--resolved 3.Suspected anaphylactic reaction to ceftriaxone. Benadryl IV given. Discussed with nursing who will place ceftriaxone on allergy list. -No persistent rash. 4. Hyperglycemia--steroid induced, keep on SSI. Constipation. No other GI complaint. on Laxatives PT/OT rec rehab-patient prefers home PT. Chronic problems: #HTN Continue home meds Norvasc added to home meds. = Blood pressure acceptable. Continue to monitor #Hypothyroidism Continue synthroid Lovenox for DVT prophylaxis Progress Note: Quality VTE Deep Vein Thrombosis/Pulmonary Embolism Present on Admission: No
[2018-12-21] MEDS: Insulin NovoLIN Regular Correctional Sugar Inj SQ SCH ×5 (00:19→21:57)
[2018-12-21] MEDS: Mirtazapine 15 MG Tablet PO SCH ×2 (00:19→21:03)
[2018-12-21] MEDS: Sodium Chloride 0.9% 2 ML Flush BID IV.FLUSH SCH ×3 (00:19→21:04)
[2018-12-21] MEDS: Oseltamivir Phosphate 75 MG Capsule PO SCH ×3 (00:20→21:03)
[2018-12-21] MEDS: MethylPREDNISolone Sod Succinate Inj 40 MG/ML Vial IV.PUSH SCH ×4 (00:20→23:58)
[2018-12-21] MEDS: Levothyroxine 150 MCG Tablet PO SCH (06:39)
[2018-12-21] MEDS: dilTIAZem CD 120 MG Capsule PO SCH (09:18)
[2018-12-21] MEDS: FLUoxetine 20 MG Capsule PO SCH (09:18)
[2018-12-21] MEDS: Azithromycin Inj 250 MG in Sodium Chlor 0.9% Inj 250 ML IV.SIG SCH (09:19)
[2018-12-21] MEDS: Enoxaparin Inj 40 MG/0.4 ML Syringe SQ SCH (09:20)
--- NOTE | 2018-12-21 10:00 | P.PNPL ---
Subjective Interval history: Patient is feeling better on 3L oxygen. Afebrile, looks comfortable, denies any CP/wheezing. Physical Exam Vital signs: Vital Signs 12/20/18 12:00 12/20/18 12:25 12/20/18 16:00 Temperature 97.6 F 97.7 F Pulse Rate 74 76 89 Respiratory Rate 18 18 19 Blood Pressure 155/75 H 156/76 H Pulse Oximetry 94 L 92 L 12/20/18 20:00 12/20/18 20:02 12/20/18 23:49 Temperature 97.8 F Pulse Rate 69 71 68 Respiratory Rate 18 24 22 Blood Pressure 174/79 H Pulse Oximetry 92 L 12/21/18 00:00 12/21/18 04:18 12/21/18 08:22 Temperature 97.1 F L Pulse Rate 64 72 75 Respiratory Rate 18 24 18 Blood Pressure 151/67 H Pulse Oximetry 97 97 95 Intake & Output 12/20/18 12/21/18 12/21/18 18:59 06:59 18:59 Intake Total 250 / 250 1919 / 1919 Balance 250 / 250 1919 Weight 101.9 kg Intake: IV 250 / 250 Azithromycin Inj 250 MG In NS 250 / 250 Inj 250 ML @ 250 mls/hr IV.SIG Q24H [facility] Rx#:[id number] Oral 1919 Other: # Voids 3 - Constitutional no acute distress, obese - Routine HEENT Exam Head: Present: normocephalic, atraumatic Eye: Present: EOMI, PERRL, normal accommodation, conjunctivae pink ENT: Present: mucous membranes moist - Routine Neck Exam Present: supple, full ROM, trachea midline - Routine Respiratory Exam Present: CTA bilaterally - Routine Cardiovascular Exam Present: RRR, S1, S2 - Routine Abdominal Exam Present: soft, normoactive bowel sounds - Routine Skin Exam Present: intact, dry - Routine Neurological Exam Present: alert, oriented X3, CN II-XII intact Assessment and Plan - Plan 1)Resp Insuff 2)COPD 3) Influenza Pneumonia 4)Obesity 5)ILD 6)DM Plan Continue oxygen keep sats >92% Bronchodilators Solumederol 40mg IV Q8 BIPAP PRN for resp distress s/p Diamox 500mg IV x1 12/20 Continue Tamiflu, Azithromycin ,check sputum cx Monitor renal function, I/O's. GI/DVT prophylaxis Continue treatment plan.
--- NOTE | 2018-12-21 10:21 | P.PNIM ---
Subjective Interval history: breathing is improving, chest does not feel tight. Physical Exam Vital signs: Vital Signs 12/20/18 12:00 12/20/18 12:25 12/20/18 16:00 Temperature 97.6 F 97.7 F Pulse Rate 74 76 89 Respiratory Rate 18 18 19 Blood Pressure 155/75 H 156/76 H Pulse Oximetry 94 L 92 L 12/20/18 20:00 12/20/18 20:02 12/20/18 23:49 Temperature 97.8 F Pulse Rate 69 71 68 Respiratory Rate 18 24 22 Blood Pressure 174/79 H Pulse Oximetry 92 L 12/21/18 00:00 12/21/18 04:18 12/21/18 08:22 Temperature 97.1 F L Pulse Rate 64 72 75 Respiratory Rate 18 24 18 Blood Pressure 151/67 H Pulse Oximetry 97 97 95 Intake & Output 12/20/18 12/21/18 12/21/18 18:59 06:59 18:59 Intake Total 250 / 250 1919 Balance 250 / 250 1919 Weight 101.9 kg Intake: IV 250 / 250 Azithromycin Inj 250 MG In NS 250 / 250 Inj 250 ML @ 250 mls/hr IV.SIG Q24H [facility] Rx#:[id number] Oral 1919 Other: # Voids 3 Narrative: GENERAL: middle aged woman, not in distress. HEENT:not pale,anicteric,nasal canula in situ. CARDIOVASCULAR: Regular rate and rhythm without murmurs, gallops, or rubs. RESPIRATORY: Clear to auscultation. Breath sounds equal bilaterally. No wheezes , rales, or rhonchi. GASTROINTESTINAL: Abdomen soft, non-tender, nondistended. Normal active bowel sounds MUSCULOSKELETAL: Extremities without clubbing, cyanosis, or edema. NEURO: Alert & Oriented x4 to person, place, time, situation. Moves all ext x4 Results Labs CBC & Chem 7: 12/19/18 05:41 12/20/18 06:26 Assessment and Plan Plan 58 y/o female with a dx of copd on 3 L of supplemental home oxygen and follows up with Dr. Wu for her COPD. She has an extensive hx of tobacco smoking.Presented with worsening shortness of breath and productive cough, was found to have the flu. Acute problems: 1.Acute hypoxic hypercapnic resp failure secondary to copd exac with influenza. CXR shows b/l infiltrates, bnp normal. Flu positive. clinically improving. Oxyegn tapered down to 3l/min. Continue Tamiflu,DUONEBS, Methyl Prednisone,Azithromycin, Oxygen by nasal canula. received Diamox on 12/20. appreciate pulmonary recs. 2. Sepsis 12/06 # 1--resolved 3.Suspected anaphylactic reaction to ceftriaxone. Benadryl IV given. Ceftriaxone on allergy list. -No persistent rash. 4. Hyperglycemia--steroid induced, keep on SSI. Constipation. No other GI complaint. on Laxatives PT/OT rec rehab-patient prefers home PT. Chronic problems: #HTN Continue home meds Norvasc added to home meds. = Blood pressure acceptable. Continue to monitor #Hypothyroidism Continue synthroid Lovenox for DVT prophylaxis Progress Note: Quality VTE Deep Vein Thrombosis/Pulmonary Embolism Present on Admission: No
[2018-12-22] MEDS: Levothyroxine 150 MCG Tablet PO SCH (06:08)
[2018-12-22 08:52] VITALS: RESP 16
[2018-12-22] MEDS: MethylPREDNISolone Sod Succinate Inj 40 MG/ML Vial IV.PUSH SCH (09:18)
[2018-12-22] MEDS: Enoxaparin Inj 40 MG/0.4 ML Syringe SQ SCH (09:21)
[2018-12-22] MEDS: dilTIAZem CD 120 MG Capsule PO SCH (09:21)
[2018-12-22] MEDS: Oseltamivir Phosphate 75 MG Capsule PO SCH (09:21)
[2018-12-22] MEDS: Sodium Chloride 0.9% 2 ML Flush BID IV.FLUSH SCH (09:24)
[2018-12-22] MEDS: Azithromycin Inj 250 MG in Sodium Chlor 0.9% Inj 250 ML IV.SIG SCH (09:24)
[2018-12-22] MEDS: Insulin NovoLIN Regular Correctional Sugar Inj SQ SCH ×2 (09:49→12:42)
[2018-12-22] MEDS: FLUoxetine 20 MG Capsule PO SCH (10:06)
--- NOTE | 2018-12-22 12:16 | P.PNIM ---
Subjective Interval history: feeling well. breathing continues to improve. Physical Exam Vital signs: Vital Signs 12/21/18 13:34 12/21/18 16:00 12/21/18 16:38 Temperature 97.6 F Pulse Rate 77 75 89 Respiratory Rate 18 17 18 Blood Pressure 152/75 H Pulse Oximetry 92 L 12/21/18 20:00 12/21/18 23:37 12/22/18 00:00 Temperature 97.8 F 98.0 F Pulse Rate 74 92 H 66 Respiratory Rate 18 15 18 Blood Pressure 179/84 H 156/75 H Pulse Oximetry 94 L 97 97 12/22/18 00:09 12/22/18 03:11 12/22/18 08:00 Temperature 98.1 F Pulse Rate 60 64 75 Respiratory Rate 25 H 34 H 16 Blood Pressure 182/81 H Pulse Oximetry 97 95 12/22/18 08:51 12/22/18 11:38 Temperature Pulse Rate 72 78 Respiratory Rate 16 16 Blood Pressure Pulse Oximetry 95 Intake & Output 12/21/18 12/22/18 12/22/18 18:59 06:59 18:59 Intake Total 250 / 250 160 / 160 Balance 250 / 250 160 / 160 Weight 99.9 kg Intake: IV 250 / 250 Azithromycin Inj 250 MG In NS 250 / 250 Inj 250 ML @ 250 mls/hr IV.SIG Q24H [facility] Rx#:[id number] Oral 160 / 160 Other: # Voids 3 Date of Last Bowel Movement 12/20/18 12/20/18 Narrative: GENERAL: middle aged woman, not in distress. HEENT:not pale,anicteric,nasal canula in situ. CARDIOVASCULAR: Regular rate and rhythm without murmurs, gallops, or rubs. RESPIRATORY: Clear to auscultation. Breath sounds equal bilaterally. No wheezes , rales, or rhonchi. GASTROINTESTINAL: Abdomen soft, non-tender, nondistended. Normal active bowel sounds MUSCULOSKELETAL: Extremities without clubbing, cyanosis, or edema. NEURO: Alert & Oriented x4 to person, place, time, situation. Moves all ext x4 Results Labs CBC & Chem 7: 12/19/18 05:41 12/20/18 06:26 Assessment and Plan Plan 58 y/o female with a dx of copd on 3 L of supplemental home oxygen and follows up with Dr. Wu for her COPD. She has an extensive hx of tobacco smoking.Presented with worsening shortness of breath and productive cough, was found to have the flu. Acute problems: 1.Acute hypoxic hypercapnic resp failure secondary to copd exac with influenza. CXR shows b/l infiltrates, bnp normal. Flu positive. clinically improving. Oxygen tapered down to 3l/min. switch to tapering dose of oral Prednisone on discharge, patient has completed full Tamiflu course. She is doing well and clinically stable for discharge. 2. Sepsis 2/ # 1--resolved 3.Suspected anaphylactic reaction to ceftriaxone. Benadryl IV given. Ceftriaxone on allergy list. -No persistent rash. 4. Hyperglycemia--steroid induced, keep on SSI. Constipation. No other GI complaint. on Laxatives PT/OT rec rehab-patient prefers home PT. Chronic problems: #HTN Continue home meds Norvasc added to home meds. = Blood pressure acceptable. Continue to monitor #Hypothyroidism Continue synthroid Lovenox for DVT prophylaxis Progress Note: Quality VTE Deep Vein Thrombosis/Pulmonary Embolism Present on Admission: No
--- NOTE | 2018-12-22 12:55 | P.DS ---
DS: Providers Date of admission: 12/14/18 18:42 Primary care physician: Callum Cassidy MD Consults: 12/14/18 18:15 Consult to Pulmonology Routine Consulting Provider: Callum Pendleton V Preferred Consumer Experience Consultant:: Mushtaq Hu Reason for Consultation: COPD exacerbation Notified:: Service Spoke with:: dusty Date Notified:: 12/14/18 Time Notified:: 19:17 Comments:: [facility] (Dr Wu[facility] group) does not consult patients at [facility] per their answering service Ordering Provider: ELIZA Brief History from admission: This patient is a 58 y/o female with a dx of copd on 3 L of supplemental oxygen and follows up with Dr. Wu for her COPD. She has an extensive hx of tobacco smoking. Patient presents to the ED today with complaints of sob that has been worsening over the past few days. She also had fevers since yesterday and a cough productive of yellow sputum. She denies any chest pain. She is fatigued and her symptoms were getting worse so she came in the ER for evaluation. She denies any n/v, no diarrhea. No other complaints. Fam hx noncontributory. DS: Diagnosis Discharge Diagnosis (1) Influenza A: Status: Acute (2) Sepsis: Status: Acute (3) Pneumonia: Status: Acute (4) Hypoxia: Status: Acute DS: Summary Patient was found to have influenza with sepsis and suspected on admission She was initially admitted to ICU. She required BIPAP, was started on DUONEBS,IV Methylprednisone, Ceftriaxone and Azithromycin. She developed hives after receiving Ceftriaxone hence it was discontinued. Blood cultures remained negative. She gradually improved and was transferred to the medical floor. She was transitioned to Oxygen by nasal canula which was gradually tapered down to her usual home requirements of 3liters/minute.Her breathing is now back to her usual state. She has been switched to tapering dose of Oral Prednisone on discharge. Patient was evaluated by PT/OT team during her hospital stay, inpatient rehab was recommended, however, patient declined preferring home physical therapy instead,arrangements for which have been made. 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 Time Spent with Patient Total time spent providing and/or coordinating discharge services:>30 minutes Quality: VTE Deep Vein Thrombosis/Pulmonary Embolism Present on Admission: No Results Labs on day of discharge: Labs from last 24 hours 12/22/18 12/22/18 12/21/18 12:36 09:23 21:01 POC Glucose 291 H 282 H 278 H 12/21/18 17:25 POC Glucose 200 H Impressions ITS Impressions Chest X-Ray 12/18/18 00:00 CONCLUSION: Bilateral pulmonary infiltrates more suggestive of an infectious etiology. These have progressed from the prior study. Discharge Plan Discharge Disposition Patient Disposition: W/Home Health Service Discharge Condition Condition: Stable Discharge Order Discharge Orders: Discharge Order (Routine); Ordered 12/22/18 Ordered By: William Auguste Discharge Details Anticipated Discharge Date: 12/22/18 Physicians Team Primary Care Provider: Callum Cassidy Attending Provider: William Auguste Other Providers: Callum Pendleton V Rxs /Orders / Referrals /Forms Prescriptions: New prednisone 10 mg tablet 10 mg PO DAILY Qty: 14 RF: 0 Continue aspirin 81 mg Tablet,Delayed Release (Dr/Ec) 81 mg PO DAILY RF: 0 diltiazem HCl 120 mg Capsule,Extended Release 24 Hr 120 mg PO DAILY RF: 0 lorazepam 2 mg Tablet 2 mg PO DAILY RF: 0 furosemide 40 mg Tablet 40 mg PO BID RF: 0 potassium chloride 10 mEq Capsule, Extended Release 10 meq PO DAILY RF: 0 omeprazole 40 mg Capsule,Delayed Release(Dr/Ec) 40 mg PO DAILY RF: 0 mirtazapine 30 mg Tablet 30 mg PO DAILY RF: 0 levothyroxine 150 mcg Tablet 150 mcg PO DAILY RF: 0 fluticasone-salmeterol [Advair Diskus] 500-50 mcg/dose Blister With Device 1 inh INHALATION BID RF: 0 albuterol sulfate [Ventolin HFA] 90 mcg/actuation Hfa Aerosol Inhaler 2 puff INHALATION Q4-6H PRN (Reason: Cough) RF: 0 fluoxetine 20 mg Capsule 20 mg PO DAILY RF: 0 Referrals: Callum Cassidy MD [Primary Care Provider] - See Instructions Discharge Instructions Patient Printed Instructions: Prednisone (By mouth), Influenza (GEN), Community Acquired Pneumonia (DC) Discharge Interventions Interventions: Discharge Planning - Case Management Last Done: 12/22/18 09:03 Status ED Status: Left Department
[2018-12-22 13:54] VITALS: BP 176/81; PULSE 76; TEMP 97.5; O2SAT 94
== END 2018-12-22 16:14 | disposition home health service (06) | DRG 871 ==
LOC: NEPC 15:57 → NEDA 18:42 → HIMC 21:11 → N07 12-18 13:36
PROVIDERS: ADMIT Hospitalist; ATTEND Hospitalist
DX: E03.9 Hypothyroidism, unspecified; J96.01 Acute respiratory failure with hypoxia; T88.6XXA Anaphylactic reaction due to adverse effect of correct drug or medicament properly administered, initial encounter; Y92.230 Patient room in hospital as the place of occurrence of the external cause; Z79.82 Long term (current) use of aspirin; I48.91 Unspecified atrial fibrillation; Z87.891 Personal history of nicotine dependence; J96.02 Acute respiratory failure with hypercapnia; I50.9 Heart failure, unspecified; J44.1 Chronic obstructive pulmonary disease with (acute) exacerbation; A41.9 Sepsis, unspecified organism; J44.0 Chronic obstructive pulmonary disease with (acute) lower respiratory infection; Z68.33 Body mass index [BMI] 33.0-33.9, adult; T36.1X5A Adverse effect of cephalosporins and other beta-lactam antibiotics, initial encounter; K59.00 Constipation, unspecified; J84.9 Interstitial pulmonary disease, unspecified; I11.0 Hypertensive heart disease with heart failure; Z99.81 Dependence on supplemental oxygen; R73.9 Hyperglycemia, unspecified; E66.9 Obesity, unspecified; J10.00 Influenza due to other identified influenza virus with unspecified type of pneumonia
CPT/HCPCS: 36600; 71010; 71045; 80048; 80053; 80069; 82550; 82805; 82948; 82962; 83520; 83735; 83880; 84484; 85025; 87040; 87275; 87276; 87641; 87804; 90774; 90775; 90784; 93005; 94003; 94640; 94657; 94664; 94665; 96374; 96375; 97110; 97116; 97162; 99285; C8952; J0456; J0692; J0696; J1120; J1200; J1650; J1940; J2920; J2930; J3480; J7050; J7120